=== PATIENT | female | born 1955 | race Caucasian/White ===

== ENCOUNTER 2024-10-20 15:09 | Outpatient (AMB) | payer MEDICARE, SELFPAY ==
--- NOTE | 2024-10-20 15:09 | A.OFFPC_ITS ---
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 Internal Required: No Is last menstrual period known: No Post menopausal: No Patient : No Allergies latex Allergy (Intermediate, Verified 10/20/24 15:31) rash Penicillins Allergy (Mild, Verified 10/20/24 15:31) Unknown codeine Adverse Reaction (Severe, Verified 10/20/24 15:31) Fainting Medication List - Last Reconciled 10/20/24 by Barbara Dailey CNP blood sugar diagnostic ([employer] Ultra Test strips) As directed blood-glucose meter ([employer] Ultra2 Meter) As directed cholecalciferol (vitamin D3) 50 mcg PO DAILY ezetimibe 10 mg PO DAILY lancets ([employer] Delica Plus Lancet) As directed lisinopril 20 mg PO DAILY magnesium 250 mg PO DAILY metformin 1,000 mg PO BID pioglitazone 30 mg PO DAILY sitagliptin phosphate (Januvia) 100 mg PO DAILY tiotropium bromide 1 cap inhalation QAM Tobacco use date assessed: 10/20/24 Fall risk assessment: No Falls in past year Last assessed Fall Risk: 10/20/24 Dental Screening Dental Screen Date: 10/20/24 Did you have a dental visit in the last 12 months?: No Did you have a dental problem in the last 6 months where you did not have access to dental care?: No Was dental information given to patient?: Yes HPI HPI Comments History of Present Illness Details 69-year-old female presents to establish care. Prior PCP? - [facility] Last office visit - 05/07/2024 Last /CPE/labs - Over a year Acute issue(s) - Reports persistent pressure bilatera l knee pain since 2000. Walking causes significant pain in her knees, therefore, she has mostly uses her power wheelchair to move around. She has been taking/applying OTC remedies with short- term relief. - In May 2024, she was hospitalized for several days at [facility] for elevated blood glucose. Last A1c was 14% in 05/2024 at [facility]. Past Medical History - Type 2 diabetes, hypertension, hyperli pidemia, COPD, obesity, kidney disease, IBS, osteoporosis, arthritis of both knees and feet, DJD of L4, myopia Surgical History - Cholecystectomy Family History - Mom: Alcohol abuse - MGF: Alcohol abuse Social History - Former smoker, smoked between 11-24 ye ars of age. Does not vape. Drinks 2 beers occasionally/holidays. Denies recreational drug use - Has been making healthy dietary choice s. She does not exercise and walking causes significant pain in her knees. Generally sleep well Health maintenance - Last eye exam was in 02/2024 with [facility]. She has an eye exam scheduled in 03/2025 - Last dental visit was over 5 years ago ; encouraged to schedule an appointment with his dentist for routine dental care - Last tetanus vaccine unknown but withi n 10 years - She states that she is up-to-date on t he flu vaccine - She notes notes that she is vaccinated for shingles and pneumonia - Last pap smear test unknown. She is wi lling to be referred for a pap smear test - Last mammogram was in 2003: normal. Sh e does not perform mammogram anymore and declines an order. She denies family history of breast cancer - Last colonoscopy was in 1993: normal. She does not perform colonoscopy anymore and declines referral. She denies family history of colon cancer - Last dexa scan was in 2004: osteoporos is. She is willing to have a dexa scan Specialists - Was followed by nephrology, endocrinol ogy, and vascular surgery [facility] Medical History (Updated 10/20/24 @ 16:08 by Barbara Dailey CNP) Kidney disease FH: cholecystectomy IBS (irritable bowel syndrome) Back disorder Swelling Osteoporosis Arthritis Diabetes High cholesterol High blood pressure COPD (chronic obstructive pulmonary disease) Family History (Updated 10/20/24 @ 15:39 by Chelsie Hamilton MA) Mother Alcohol abuse Thyroid disorder Maternal Aunt Alcohol abuse Maternal Grandfather Alcohol abuse Father Diabetes Maternal Grandmother Diabetes Brother Diabetes Sister Thyroid disorder Social History Housing: Apartment Patient Tobacco Use Status: Former Tobacco user e-Cigarette/Vaping Use: Never Used Second Hand Smoke Exposure: No service: No Current occupational status: disabled Current occupational exposures/hazards: No Cognitive needs: Yes (wheel chair) Hearing needs: No Vision needs: Yes Questionnaire PHQ-9 Over the last 2 weeks, how often have you been bothered by any of the following problems? 1. Little interest or pleasure in doing things: several days 2. Feeling down, depressed, or hopeless: not at all 3. Trouble falling or staying asleep, or sleeping too much: several days 4. Feeling tired or having little energy: nearly every day 5. Poor appetite or overeating: nearly every day 6. Feeling bad about yourself - or that you are a failure or have let yourself or your family down: not at all 7. Trouble concentrating on things, such as reading the newspaper or watching television: not at all 8. Moving or speaking so slowly that other people could have noticed. Or the opposite - being so fidgety or restless that you have been moving around a lot more than usual: not at all 9. Thoughts that you would be better off or of hurting yourself in some way: not at all Total score: 8 Depression Screening Interpretation: Positive Depression Screening Done: Yes 38541 - PHQ-9 Billing: Yes Source: Developed by Drs. Nacriso Araiza, Louann Cade, Familia Ashby and colleagues, with an educational basim from [employer]. Thrive Questionnaire Date Thrive assessed: 10/20/24 I am a: Patient What is your living situation today?: I have a steady place to live Within the past 12 months, did the food you bought not last and you didn't have the money to get more?: Sometimes True Within the past 12 months, did you worry whether your food would run out before you got money to buy more?: Never true Do you have trouble paying for medicines?: No Do you have trouble getting transportation to medical appointments?: No Do you have trouble paying your heating and electricity bill?: No Do you have trouble taking care of your child, family member or friend?: Yes Do you have trouble with day-to-day activities such as bathing, preparing meals, shopping, managing finances, etc.?: No Are you currently unemployed and looking for a job?: No Are you interested in more education?: No Please select the resources that you would like help with: Food and None Currently or been in a relationship where the following occur: No concerns reported THRIVE Score: 1 AUDIT C Alcohol Use Questionnaire (AUDIT-C) 1. How often do you have a drink containing alcohol?: Monthly or less 2. How many drinks containing alcohol do you have on a typical day when you are drinking?: 1 or 2 3. How often do you have six or more drinks on one occasion?: Never Total Score: 1 Score Reviewed/Action Taken: Yes SILVESTRE-7 AMB Questionnaire SILVESTRE-7 Date SILVESTRE - 7 assessed: 10/20/24 Feeling nervous, anxious, or on edge: 0 = Not at all Not being able to stop or control worryin = Not at all Worrying too much about different things: 0 = Not at all Trouble relaxin = Not at all Being so restless that it is hard to sit still: 0 = Not at all Becoming easily annoyed or irritable: 1 = Several days Feeling afraid as if something awful might happen: 0 = Not at all Total SILVESTRE-7 score (0-4 normal; 5-9 mild; 10-14 moderate; 15-21 severe): 1 Source: Developed by Drs. Narciso Araiza, Louann Cade, Familia Ashby and colleagues, with an educational basim from [employer]. SILVESTRE-7 Assessment Billing SILVESTRE-7 Assessment Tool: SILVESTRE-7 Assessment 64721 Review of Systems Const Details: Const Denies chills, Denies fatigue, Denies fever(s), Denies headache(s) and Denies weakness ENT Denies dizziness and Denies headache(s) Card Denies chest pain, Denies lightheadedness, Denies dyspnea and Denies other (Palpitations) Resp Denies cough, Denies dyspnea, Denies wheezing and Denies other ( shortness of breath) GI Denies abdominal pain, Denies melena, Denies hematochezia, Denies change in bowel habits, Denies dyspepsia and Denies nausea Denies hematuria and Denies dysuria Musc Reports as per HPI Skin/Breast Denies rash, Denies unusual bruising and Denies wounds Neuro Reports abnormal gait, Denies dizziness, Denies headache(s), Denies memory loss, Denies numbness, Denies Sensory deficit (Neuro), Denies tingling and Denies weakness Psych Denies anxiety, Denies depression, Denies memory loss Endo Denies cold intolerance, Denies fatigue, Denies heat intolerance, Denies polydipsia and Denies polyuria Aller/Immun Denies wheezing Physical exam (Primary Care) Vital Signs: Last Vital Signs Temp 97.7 F 10/20/24 15:27 Pulse 105 H 10/20/24 15:27 Resp 16 10/20/24 15:27 BP 115/63 10/20/24 15:27 Pulse Ox 95 10/20/24 15:27 Oxygen Delivery Method Room Air 10/20/24 15:27 BMI result Body Mass Index 44.9 Tobacco/Smoking Status: Tobacco use Status Tobacco use date assessed 10/20/24 10/20/24 15:25 Patient Tobacco Use Status Former Tobacco user 10/20/24 15:25 e-Cigarette/Vaping Use Never Used 10/20/24 15:25 PHQ-9: PHQ-9 Score PHQ-9: Total score 8 10/21/24 06:34 Depression Screening Interpretation: Positive Thrive Assessment: Date of Thrive Assessment Date Thrive assessed 10/20/24 10/20/24 15:45 Currently or been in a relationship where the following occur: No concerns reported Const Other: General: no acute distress and well developed Nutritional Appearance: well nourished Orientation/consciousness: patient oriented x3 HENMT Head: Yes normocephalic and Yes atraumatic Eyes General: appearance normal, both eyes and all related structures Pupils: Equal, round and reactive pupils present EOM: EOMs intact bilaterally Resp Effort & Inspection: normal respiratory effort Auscultation: clear to auscultation bilaterally Cardio Rate: regular rate Rhythm: regular rhythm Heart sounds: S1 normal heart sound present, S2 normal heart sound present, no gallops, no murmurs and no rubs GI Palpation (GI): No Abdominal aortic bruit present, Soft to palpation, nontender, No hepatosplenomegaly present and No Rebound tenderness present Auscultation: normal bowel sounds General: Yes no CVA tenderness Back/Spine/Pelvis Back: no CVA tenderness Cervical Spine: cervical ROM normal and No Cervical spine tenderness Thoracic/Lumbar Spine: thoraco-lumbar ROM normal, No pain with thoraco-lumbar ROM, No thoracic spinal tenderness and No lumbar spinal tenderness Extrem General: Yes normal to inspection, No edema and No calf tenderness Skin General: warm and dry. Normal skin color. Normal skin turgor Lesions: no lesions Rashes: no rashes Trauma: no lacerations or abrasions Wounds: no wounds Nails: normal Neuro General: patient oriented x3, wheelchair-bound and no focal neuro deficit Cranial nerves: Yes Equal, round and reactive pupils present Cognition (Neuro): normal cognition Gait exam (Neuro): Not assessed Sensory Exam: No Sensory deficit (Neuro) Psych Appearance: grossly normal Affect: normal affect Attitude: cooperative Thought process: Normal thought process present Results AMB Hemoglobin A1c AMB Hemoglobin A1c 6.8 % Last Edit by Helena Roa MA on 10/20/24 16:22 Results Reviewed Results Reviewed: Laboratory Last Values Hgb A1c (Clinic) 6.8 % (4.0-6.0) H 10/20/24 16:22 Coding Level of Care Code New Pt Level 4 (91341) Diagnoses Type 2 diabetes mellitus E11.9 High blood pressure I10 Arthritis of both knees M17.0 Laboratory tests ordered as part of a complete physical exam (CPE) Z00.00 Additional Codes SILVESTRE-7 Assessment Billing - SILVESTRE-7 Assessment Tool: SILVESTRE-7 Assessment 73254 ([id number]) PHQ-9 - 26549 - PHQ-9 Billing: Yes ([id number]) Assessment & Plan Assessment & Plan (1) Type 2 diabetes mellitus: Code(s): E11.9 - Type 2 diabetes mellitus without complications Category: Medical Plan: A1c today is 6.8%, within goal of less than 7.0%. Continue current treatment regimen. ADA diet and routine exercise encouraged. Advised to perform lab work before next visit. Follow-up in a month for an extended physical exam and labs review. Return sooner with symptoms or concerns. Verbalized understanding and agreed with the plan. (2) High blood pressure: Code(s): I10 - Essential (primary) hypertension Category: Medical Plan: Blood pressure is 115/63, within goal of less than 130/80. Continue current treatment regimen. Will continue to monitor. Verbalized understanding and agreed with the plan. (3) Arthritis of both knees: Code(s): M17.0 - Bilateral primary osteoarthritis of knee Category: Medical Plan: Reports persistent pressure bilateral knee pain since 2000. Walking causes significant pain in her knees, therefore, she has mostly uses her power wheelchair to move around. She has been applying OTC remedies with short-term relief. Tylenol ordered; advised to take as prescribed. Follow-up with worsening or new symptoms or concerns. Verbalized understanding and agreed with the plan. (4) Laboratory tests ordered as part of a complete physical exam (CPE): Code(s): . - Encounter for general adult medical examination without abnormal findings Category: Medical Plan: Fasting labs ordered as part of a complete physical exam. Advised to fast for at least 10 hours before getting labs drawn. May drink water Verbalized understanding and agreed with treatment plan. Orders: Orders Comprehensive Perry. Panel Fast 10/20/24. - Encounter for general adult medical examination without abnormal findings Lipid Panel 10/20/24. - Encounter for general adult medical examination without abnormal findings Complete Blood Count Auto Diff 10/20/24. - Encounter for general adult medical examination without abnormal findings Microalbumin, Random (w Creat) 10/20/24 Z. - Encounter for general adult medical examination without abnormal findings TSH reflex Free T4 10/20/24. - Encounter for general adult medical examination without abnormal findings UA CC w/rflx Micro + Cult 10/20/24 Z. - Encounter for general adult medical examination without abnormal findings Vitamin D 25-OH Total 10/20/24. - Encounter for general adult medical examination without abnormal findings AMB Hemoglobin A1c 10/20/24 E11.9 - Type 2 diabetes mellitus without complications Medications: New sitagliptin phosphate (Januvia) 100 mg PO DAILY 90 days 90 tabs 1RF acetaminophen ER (Tylenol 8 Hour) 650 mg PO Q8H PRN 90 tabs 3RF pain
[2024-10-20 15:27] VITALS: BP 115/63; PULSE 105; RESP 16; TEMP 36.5; O2SAT 95; BMI 44.9
--- OUTSIDE RECORDS SUMMARY | 2024-10-20 16:14 | XMS_ITS | Clinical Summary ---
Author Organization [address] [place] [address] Address [address] [place] [address] Phone Care Team Providers Care Claims Coordinator Name Role Phone Barbara Dailey TIARRA Primary Care Provider [phone] Allergies Active Allergy Reactions Criticality Noted Date Comments Codeine 05/31/2022 Passed out Other 09/30/2017 Powder gloves Penicillins 09/30/2017 Medications blood-glucose meter kit Check sugars upto 2 times a day 4 Active glucose blood test strip Check sugars upto 2 times a day 4 Active LACTOBACILLUS ACIDOPHILUS ORAL Take by mouth. Active potassium &magnesium aspartate (MAGNESIUM, POTASSIUM ASPARTATE ORAL) Take by mouth 1 (one) time each day. Active lancets lancets Check sugars upto 2 times a day 4 Active pyridoxine HCl, vitamin B6, (PYRIDOXINE, VITAMIN B6, ORAL) Take by mouth 1 (one) time each day. Active TURMERIC ORAL Take by mouth 1 (one) time each day. Active ZINC ORAL Take by mouth 1 (one) time each day. Active cholecalciferol (VITAMIN D-3) 25 mcg (1,000 unit) tablet Take 2 tablets (2,000 Units total) by mouth 1 (one) time each day. 4 Active SITagliptin phosphate (Januvia) 100 mg tablet Take 1 tablet (100 mg total) by mouth 1 (one) time each day. 4 Active lisinopriL (PRINIVIL,ZESTRIL) 20 mg tabletIndications:P rimary hypertension Take 1 tablet (20 mg total) by mouth 1 (one) time each day. 90 tablet 2 4 Active ezetimibe (ZETIA) 10 mg tabletIndications:M ixed hyperlipidemia Take 1 tablet (10 mg total) by mouth 1 (one) time each day. 90 tablet 2 4 Active tiotropium (SPIRIVA) 18 mcg per inhalation capsuleIndications: Chronic obstructive pulmonary disease, unspecified COPD type ([facility] V24, [facility] V28) Place 1 capsule (18 mcg total) into inhaler and inhale 1 (one) time each day in the morning. Inhale the contents of one capsule through the Spiriva device every AM 1 each 3 4 Active metFORMIN (GLUCOPHAGE) 1,000 mg tablet Take 1 tablet (1,000 mg total) by mouth 2 (two) times a day with meals. 60 each 2 4 Active insulin glargine (LANTUS SoloStar) 100 unit/mL (3 mL) injection pen Inject 25 Units under the skin at bedtime. 5 Pen 4 Active pioglitazone (ACTOS) 30 mg tablet Take 1 tablet (30 mg total) by mouth 1 (one) time each day. Active SITagliptin phosphate (JANUVIA) 100 mg tablet Take 1 tablet (100 mg total) by mouth 1 (one) time each day. Active pen needle, diabetic (BD Ultra-Fine Short Pen Needle) 31 gauge x 5/16 needleIndications:T ype 2 diabetes mellitus with diabetic neuropathy, without long-term current use of insulin ([facility] V24, [facility] V28) Use to inject 1-4 times daily as directed 100 each 11 5 Active Active Problems Problem Noted Date Diagnosed Date Hyperglycemia due to diabete s mellitus ([facility] V24, [facility] V28) 05/08/2024 Type 2 diabetes mellitus wit h hyperglycemia ([facility] V24, [facility] V28) 05/07/2024 Leg swelling 08/28/2023 Chronic low back pain with bilateral sciatica Primary osteoarthritis of both knees 03/29/2023 Arthritis 10/17/2022 Primary hypertension 10/17/2022 Irritable bowel syndrome 01/21/2020 Type 2 diabetes mellitus wit h obesity ([facility] [place], [facility] V28) 06/26/2019 Morbid obesity ([facility] V24, [facility] V28) 2018 Chronic back pain 09/30/2017 Chronic obstructive pulmonar y disease ([facility] [place]24, [facility] V28) 09/30/2017 Chronic pain of both knees 09/30/2017 Hyperlipidemia 09/30/2017 Low vitamin D level 09/30/2017 Type 2 diabetes mellitus wit h diabetic neuropathy, without long-term current use of insulin ([facility] [place], [facility] V28) 09/30/2017 Immunizations Name Administration Dates Next Due Influenza Quadravalent, 0.5m l (Fluad) 65yo and older 02/22/2024 Influenza Quadravalent, MDCK , 0.5ml, preservative free (Flucelvax) 6mo and older 02/24/2018 Influenza trivalent, 0.5mL ( Fluad) 65yo and older 03/07/2021,02/09/2020,02/16/2019,02/11,03/12/2014,03/06/2013,03/06/2012 ,03/13/2011,03/11/2010 Influenza trivalent, 0.5mL, preservative free (Fluarix; FluLaval; Fluzone) ages 6mo and older (Afluria) 3 years and older 02/13/2016,03/24/2015 [employer] SARS-CoV-2 COVID-19, mRNA, LNP-S, preservative free 02/21/2022,04/24/2021,10/10/2020 Pneumococcal conjugate 13 va lent (Prevnar 13, PCV13) 2mo and older 02/16/2019 Pneumococcal conjugate 20 va lent (Prevnar 20, PCV 20) 2mo and older 03/29/2023 Pneumococcal polysaccharide 23 valent (Pneumovax 23) 2yo and older 03/07/2021 RSV, bivalent, protein subun it RSVpreF, 0.5mL, Preservative Free (ABRYSVO) 60yo and older or 32 through 36 wks of 03/25/2024 Tdap Tetanus diptheria acell ular pertussis (Boostrix; Adacel) 7yo and older 08/02/2021 Zoster recombinant (Shingrix ) 19yo and older 02/24/2018,09/13/2017 Surgical History Surgery Date Site/Laterality Comments COLONOSCOPY PROCEDURE: HISTORICAL COLONOSCOPY HYSTERECTOMY PROCEDURE: HISTORICAL HYSTERECTOMY CHOLECYSTECTOMY PROCEDURE: [place] LAPAROSCOPY SURG CHOLECYSTECTOMY Medical History Medical History Date Comments L4 vertebral fracture (CMS/H CC V24, [facility] V28) DX:L4 vertebral fracture (HC C) Bronchitis DX:Bronchitis Diabetes mellitus type 2, co ntrolled, with complications (CMS/HCC V24, [facility] V28) DX:Diabetes mellitus type 2, controlled, with complications ([facility]) Irritable bowel syndrome DX:Irri table bowel syndrome Hyperlipidemia DX:Hyperlipidemi a Essential hypertension DX:Essent ial hypertension Primary osteoarthritis of both knees 03/29/2023 DX:Primary osteoarthritis of both knees COPD (chronic obstructive pu lmonary disease) (CMS/HCC V24, CMS/[facility] V28) Chronic back pain Obesity (BMI 30-39.9) Family History Medical History Relation Name Comments Diabetes Brother 1 COPD Brother 2 No Known Problems Brother 3 Diabetes Father Arthritis Mother Other cancer Mother brain Stroke Mother Hypertension Sister 1 No Known Problems Sister 2 No Known Problems Sister 3 No Known Problems Sister 4 No Known Problems Sister 5 Other cancer Sister 6 52 yo Asthma Son Relation Name Status Comments Brother 1 Alive Brother 2 Alive Brother 3 Alive Father Mother Sister 1 Alive Sister 2 Alive Sister 3 Alive Sister 4 Alive Sister 5 Alive Sister 6 52 yo Son Alive Social History Tobacco Use Types Packs/Day Years Used Date Smoking Tobacco: Former Cigarettes Q uit: 06/03/1969 Smokeless Tobacco: Never Tobacco Cessation:Counseling Given: Not Answered Alcohol Use Standard Drinks/Week Comments Yes 0 (1 standard drink = 0.6 oz pur e alcohol) Interpersonal Safety Answer Date Record ed Physical Abuse 05/08/2024 Verbal Abuse 05/08/2024 Comments Unknown Sex and Gender Information Value Date Recorded Sex Assigned at Female 05/07/2024 8:03 PM EST Legal Sex Female 2:02 PM EST Gender Identity Female 05/07/2024 8:03 PM EST Sexual Orientation Straight 05/07/2024 8: 03 PM EST Obstetrics History Last Filed Vital Signs Vital Sign Reading Time Taken Comments Blood Pressure 136/67 05/11/2024 8:35 AM EST Pulse 72 05/11/2024 3:20 AM EST Temperature 36.6 ??C (97.9 ??F) 05/11/2024 3:20 AM ES T Respiratory Rate 16 05/10/2024 7:26 PM EST Oxygen Saturation 98% 05/11/2024 3:20 AM EST Inhaled Oxygen Concentration - - Weight 107 kg (235 lb) 05/10/2024 3:01 PM EST Height 165.1 cm (5' 5 ) 05/07/2024 5:03 PM EST Body Mass Index 39.11 05/07/2024 5:03 PM EST Plan of Treatment Health Maintenance Due Date Last Done Comments Breast Cancer Screening 1955 Diabetes: Annual Foot Exam 1963 Colorectal Cancer Screening: Stool Based Tests (FOBT/FIT) 05/11/2022 Depression Screening 05/11/2022 Medicare Annual Wellness Visit 05/11/2022 Osteoporosis Screening (Bone Density Screening) 05/11/2022 Social Influencers of Health Screening 05/11/2022 COVID-19 Vaccine (10 - Pfizer risk 2023- season) 2024 02/17/2024, 02/12/2024, 10/10/2023, Additional history exists Diabetes: Blood Sugar Control Test (HGBA1C) 11/05/2024 05/07/2024, 07/22/2023 Diabetes: Annual Urine Albumin-Creatinine Ratio (uACR) 12/31/2024 01/01/2024 Diabetes: Annual Retina Eye Exam 03/02/2025 03/02/2024 Diabetes: Annual GFR (Glomerular Filtration Rate) 05/09/2025 05/09/2024, 05/08/2024, 05/08/2024, Additional history exists Hypertension/CHF/CAD Annual BMP Blood Test 05/09/2025 05/09/2024, 05/08/2024, 05/08/2024, Additional history exists Falls Risk Assessment 05/11/2025 05/11/2024 Cholesterol Screening (Lipid Panel) 03/20/2028 03/20/2023 DTaP,Tdap,and Td Vaccines (2 - Td or Tdap) 08/03/2031 08/02/2021 Zoster Vaccines Completed 02/24/2018, 09/13/2017 Hepatitis C Screening Completed 08/02/2021 Pneumococcal Vaccine: 50+ Years Completed 03/29/2023, 03/07/2021, 02/16/2019 Influenza Vaccine Completed 02/22/2024, , 02/28/2023, Additional history exists RSV Immunization Adult Patients Completed 03/25/2024, 03/20/2023 HIB Vaccines Aged Out No longer eligi ble based on patient's age to complete this topic HPV Vaccines Aged Out No longer eligi ble based on patient's age to complete this topic Hepatitis A Vaccines Aged Out No long er eligible based on patient's age to complete this topic Hepatitis B Vaccines Aged Out No long er eligible based on patient's age to complete this topic IPV Vaccines Aged Out No longer eligi ble based on patient's age to complete this topic MMR Vaccines Aged Out No longer eligi ble based on patient's age to complete this topic Meningococcal ACWY Vaccine Aged Out N o longer eligible based on patient's age to complete this topic Meningococcal B Vaccine Aged Out No l onger eligible based on patient's age to complete this topic RSV Immunization Patients Under 20 months Aged Out No longer eligible based on patient's age to complete this topic Varicella Vaccines Aged Out No longer eligible based on patient's age to complete this topic Procedures Procedure Name Priority Date/Time Associated Diagnosis Comments BASIC METABOLIC PANEL Routine 05/09/2024 7:08 AM EST HEMOGLOBIN A1C Add-On 05/07/2024 5:07 PM EST EXTERNAL DIABETIC RETINA EYE EXAM Routine 03/02/2024 9:49 AM EDT URINE ALBUMIN CREATININE RATIO Routine 01/01/2024 LIPID PANEL Routine 03/20/2023 HEPATITIS C SCREENING Routine 08/02/2021 from Last 3 Months or Most Recently Relevant to Health Maintenance Results * (ABNORMAL) Basic metabolic panel (05/09/2024 7:08 AM EST) [facility] Sodium 137 133 - 145 mmol/L LAB CHEMISTRY METHOD 05/09/2024 7:52 AM [facility] Potassium 4.5 3.5 - 5.5 mmol/L LAB CHEMISTRY METHOD 05/09/2024 7:52 AM [facility] Chloride 108 96 - 110 mmol/L LAB CHEMISTRY METHOD 05/09/2024 7:52 AM [facility] CO2 22 21 - 32 mmol/L LAB CHEMISTRY METHOD 05/09/2024 7:52 AM [facility] Anion Gap 7 3 - 11 LAB CHEMISTRY METHOD 05/09/2024 7:52 AM [facility] Glucose 289(H) 70 - 100 mg/dL LAB CHEMISTRY METHOD 05/09/2024 7:52 AM [facility] BUN 18 5 - 25 mg/dL LAB CHEMISTRY METHOD 05/09/2024 7:52 AM [facility] Creatinine 1.09 0.50 - 1.10 mg/dL LAB CHEMISTRY METHOD 05/09/2024 7:52 AM [facility] eGFR 54(L) >=60 mL/min/1. 73m2 LAB CHEMISTRY METHOD 05/09/2024 7:52 AM [facility] Comment:Calculation based on the??Chronic Kidney Disease Epidemiology Collaboration (CKD-EPI) equation refit??without adjustment for race. BUN/Creatinine Ratio 16.5 LAB CHEMISTRY METHOD 05/09/2024 7:52 AM [facility] Calcium 9.2 8.5 - 10.5 mg/dL LAB CHEMISTRY METHOD 05/09/2024 7:52 AM [facility] Blood Venous blood specimen / Unknown Venipuncture / Unknown 05/09/2024 7:08 AM EST 05/09/2024 7:23 AM EST us Ricardo Cosme MD LAB BLOOD ORDERABLES Final Re sult [facility] [address] [place] [address], [place] [phone] * (ABNORMAL) Hemoglobin A1c (05/07/2024 5:07 PM EST) [facility] Hemoglobin A1C 14.7(H) <6.5 % LAB CHEMISTRY METHOD 05/08/2024 2:[address] [facility] Mean Bld Glu Estim. 375 mg/dL LAB CHEMISTRY METHOD 05/08/2024 2:[address] [facility] Blood Venous blood specimen / Unknown Venipuncture / Unknown 05/07/2024 5:07 PM EST 05/07/2024 5:18 PM EST Result [facility] Alberto lAvarado MD LAB BLOOD ORDERABLES Final Result [facility] [address] [place] [address], * External Diabetic Retina Eye Exam Report (03/02/2024 9:49 AM EDT) Anatomical Region Laterality Modality Ultrasound Result [facility] Historical Provider IMG US PROCEDURES Final R esult * Urine Albumin Creatinine Ratio (01/01/2024) [facility] Urine Albumin Creatinine Ratio Abstracted Result [facility] MAINTENANCE Final Result * (ABNORMAL) Lipid panel (03/20/2023) [facility] LDL/HDL Ratio 5(A) 0 - 4 Triglycerides 235(A) 0 - 150 mg/dL Cholesterol 238(A) 0 - 200 mg/dL HDL 45 >=40 mg/dL LDL Cholesterol 146(A) 0 - 100 mg/dL Blood Venous blood specimen / Unknown Result [facility] Historical [place] [facility] LAB BLOOD ORDERABLES Maisha l Result * Hepatitis C Screening (08/02/2021) [facility] Hepatitis C Screening Abstracted Result [facility] Final Result from Last 3 Months or Most Recently Relevant to Health Maintenance Insurance [employer] Advance Directives Documents on File Type Date Recorded 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 Do not modify or discontinue any currently active code status orders. * Full Code - Default Date Activated Date Inactivated Comments 05/07/2024 8:16 PM 05/07/2024 9:37 PM This is orde r is used when code status has not been discussed with the patient, or code status is otherwise unknown/unconfirmed To update the patient's code status, place a code status order. Do not modify or discontinue any currently active code status orders. Care Teams Claims Coordinator Relationship Specialty Start Date End Date Barbara Dailey FNP [address] [place] [address] PCP - General Family Medicine 07/06/24
== END 2024-10-20 16:34 | disposition home or self-care (01) ==
LOC: HO.HMCFM 15:09
PROVIDERS: PCP Nurse Practitioner Family; Visit Provider Nurse Practitioner Family
DX: E11.9 Type 2 diabetes mellitus without complications (principal)

== ENCOUNTER → 2024-10-20 15:09 | Outpatient (BNVA) | payer MEDICARE, SELFPAY | PROVIDERS: PCP Nurse Practitioner Family; Visit Provider Nurse Practitioner Family | DX: Z00.00 Encounter for general adult medical examination without abnormal findings (principal); E11.9 Type 2 diabetes mellitus without complications; J44.9 Chronic obstructive pulmonary disease, unspecified; I10 Essential (primary) hypertension; M17.0 Bilateral primary osteoarthritis of knee | CPT/HCPCS: 83036; 96127; 99202 ==

== ENCOUNTER 2024-10-29 08:03 | Outpatient (REF) | payer MEDICARE, SELFPAY ==
--- OUTSIDE RECORDS SUMMARY | 2024-10-29 08:06 | XMS_ITS | Clinical Summary ---
Author Organization [address] [place] [address] Address [address] [place] [address] Phone Care Team Providers Care Groundwater Programs Director Name Role Phone Barbara Dailey TIARRA Primary Care Provider [phone] Allergies Active Allergy Reactions Criticality Noted Date [...] Chronic obstructive pulmonary disease, unspecified COPD type ([facility] V24, [facility] V28) Place 1 capsule (18 mcg total) [...] neuropathy, without long-term current use of insulin ([facility] V24, [facility] V28) Use to inject 1-4 times daily as directed 100 each 11 5 Active Active Problems Problem Noted Date Diagnosed Date Hyperglycemia due to diabete s mellitus ([facility] V24, [facility] V28) 05/08/2024 Type 2 diabetes mellitus wit h hyperglycemia ([facility] V24, [facility] V28) 05/07/2024 Leg swelling 08/28/2023 Chronic low back pain with bilateral sciatica Primary osteoarthritis of both knees 03/29/2023 Arthritis 10/17/2022 Primary hypertension 10/17/2022 Irritable bowel syndrome 01/21/2020 Type 2 diabetes mellitus wit h obesity ([facility] [place]24, [facility] V28) 06/26/2019 Morbid obesity ([facility] V24, [facility] V28) 2018 Chronic back pain 09/30/2017 Chronic obstructive pulmonar y disease ([facility] V24, [facility] V28) 09/30/2017 Chronic pain of both knees 09/30/2017 Hyperlipidemia 09/30/2017 Low vitamin D level 09/30/2017 Type 2 diabetes mellitus wit h diabetic neuropathy, without long-term current use of insulin ([facility] V24, [facility] V28) 09/30/2017 Immunizations Name Administration Dates Next Due Influenza Quadravalent, 0.5m l (Fluad) 65yo and older 02/22/2024 Influenza Quadravalent, MDCK , 0.5ml, preservative free (Flucelvax) 6mo and older 02/24/2018 Influenza trivalent, 0.5mL ( Fluad) 65yo and older 03/07/2021,02/09/2020,02/16/2019,02/11,03/12/2014,03/06/2013,03/06/2012 ,03/13/2011,03/11/2010 Influenza trivalent, 0.5mL, preservative free (Fluarix; FluLaval; Fluzone) ages 6mo and older (Afluria) 3 years and older 02/13/2016,03/24/2015 [employer] SARS-CoV-2 COVID-19, mRNA, LNP-S, preservative free 02/21/2022,04/24/2021,10/10/2020 [...] COLONOSCOPY HYSTERECTOMY PROCEDURE: HISTORICAL HYSTERECTOMY CHOLECYSTECTOMY PROCEDURE: [place] LAPAROSCOPY SURG CHOLECYSTECTOMY Medical History Medical History Date Comments L4 vertebral fracture (CMS/H CC V24, [facility] V28) DX:L4 vertebral fracture (HC C) Bronchitis DX:Bronchitis Diabetes mellitus type 2, co ntrolled, with complications (CMS/HCC V24, [facility] V28) DX:Diabetes mellitus type 2, controlled, with complications ([facility]) Irritable bowel syndrome DX:Irri table bowel syndrome Hyperlipidemia DX:Hyperlipidemi a Essential hypertension DX:Essent ial hypertension Primary osteoarthritis of both knees 03/29/2023 DX:Primary osteoarthritis of both knees COPD (chronic obstructive pu lmonary disease) (CMS/HCC V24, [facility] V28) Chronic back pain Obesity (BMI 30-39.9) [...] 05/07/2024 5:03 PM EST Plan of Treatment Upcoming Encounters Date Type Department Care Team (Late st Contact Info) Description 12/03/2024 1:15 PM EDT Office Visit Endocrinology [address] [phone] Maurice Santos MD [address] [place] [address] 01/14/2025 2:00 PM EDT Office Visit Vascular Surgery - [place] [address] [phone] Asha Drew MD [address] [place] [address] [place] [address] Health Maintenance Due Date Last Done Comments Breast Cancer Screening 1955 Diabetes: Annual Foot Exam 1963 Colorectal Cancer Screening: Stool Based Tests (FOBT/FIT) 05/11/2022 Depression Screening 05/11/2022 Medicare Annual Wellness Visit 05/11/2022 Osteoporosis Screening (Bone Density Screening) 05/11/2022 Social Influencers of Health Screening 05/11/2022 COVID-19 Vaccine (10 - Pfizer risk season) 2024 02/17/2024, 02/12/2024, 10/10/2023, Additional history [...] Basic metabolic panel (05/09/2024 7:08 AM EST) Sodium 137 133 - 145 mmol/L LAB CHEMISTRY METHOD 05/09/2024 7:52 AM [facility] Potassium 4.5 3.5 - 5.5 mmol/L LAB CHEMISTRY METHOD 05/09/2024 7:52 AM [facility] Chloride 108 96 - 110 mmol/L LAB CHEMISTRY METHOD 05/09/2024 7:52 AM [facility] CO2 22 21 - 32 mmol/L LAB CHEMISTRY METHOD 05/09/2024 7:52 AM [facility] Anion Gap 7 3 - 11 LAB CHEMISTRY METHOD 05/09/2024 7:52 AM [facility] Glucose 289(H) 70 - 100 mg/dL LAB CHEMISTRY METHOD 05/09/2024 7:52 AM [facility] BUN 18 5 - 25 mg/dL LAB CHEMISTRY METHOD 05/09/2024 7:52 AM [facility] Creatinine 1.09 0.50 - 1.10 mg/dL LAB CHEMISTRY METHOD 05/09/2024 7:52 AM [facility] eGFR 54(L) >=60 mL/min/1. 73m2 LAB CHEMISTRY METHOD 05/09/2024 7:52 AM [facility] Comment:Calculation based on the??Chronic Kidney Disease Epidemiology Collaboration (CKD-EPI) equation refit??without adjustment for race. BUN/Creatinine Ratio 16.5 LAB CHEMISTRY METHOD 05/09/2024 7:52 AM EST [facility] Calcium 9.2 8.5 - 10.5 mg/dL LAB CHEMISTRY METHOD 05/09/2024 7:52 AM EST [facility] Blood Venous blood specimen / Unknown Venipuncture / Unknown 05/09/2024 7:08 AM EST 05/09/2024 7:23 AM EST us Ricardo Cosme MD LAB BLOOD ORDERABLES Final Re sult Performing Organization Address City/[facility]/ZIP Co de Phone Number [facility] [address] [place] [address], [place] [phone] * (ABNORMAL) Hemoglobin A1c (05/07/2024 5:07 PM EST) Hemoglobin A1C 14.7(H) <6.5 % LAB CHEMISTRY METHOD 05/08/2024 2:15 PM EST [facility] Mean Bld Glu Estim. 375 mg/dL LAB CHEMISTRY METHOD 05/08/2024 2:15 PM EST [facility] Blood Venous blood specimen / Unknown Venipuncture / Unknown 05/07/2024 5:07 PM EST 05/07/2024 5:18 PM EST us Alberto Alvarado MD LAB BLOOD ORDERABLES Final Result [facility] [address] [place] [address], [place] [phone] * External Diabetic Retina Eye Exam Report (03/02/2024 9:49 AM EDT) Anatomical Region Laterality Modality Ultrasound us Historical Provider MD KIRK US PROCEDURES Final R esult * HM Urine Albumin Creatinine Ratio (01/01/2024) Urine Albumin Creatinine Ratio Abstracted Historical Provider HEALTH MAINTENANCE Final Result * (ABNORMAL) Lipid panel (03/20/2023) LDL/HDL Ratio 5(A) 0 - 4 Triglycerides 235(A) 0 - 150 mg/dL Cholesterol 238(A) 0 - 200 mg/dL HDL 45 >=40 mg/dL LDL Cholesterol 146(A) 0 - 100 mg/dL Blood Venous blood specimen / Unknown Result [facility] Provider LAB BLOOD ORDERABLES Maisha l Result * Hepatitis C Screening (08/02/2021) Hepatitis C Screening Abstracted [facility] Provider HEALTH MAINTENANCE Final Result from Last 3 Months or Most Recently Relevant to Health Maintenance Insurance [employer] Advance Directives Documents on File Type Date Recorded Patient 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 Care Teams Groundwater Programs Director Relationship Specialty Start Date End Date Barbara Dailey FNP [address] [place] [address] PCP - General Family Medicine 07/06/24
[2024-10-29 11:55] LABS: MANUAL DIFF FLAG NO
[2024-10-29 12:09] LABS: Basophils Absolute Auto 0.1 X10*3/uL (0.0-0.2); Eosinophils Absolute Auto 0.5 X10*3/uL (0.0-0.4); Eosinophils Percent Auto 5.4 % (0-4); Hematocrit 38.1 % (37.0-47.0); Hemoglobin 12.5 g/dl (12.0-16.0); Imm Gran Abs Auto 0.03 X10*3/uL (0.00-0.03); Imm Gran Pct Auto 0.3 % (0.0-0.4); Lymphocytes Absolute Auto 3.2 X10*3/uL (1.2-4.9); Lymphocytes Percent Auto 36.2 % (20-40); Mean Corpuscular HGB Conc 32.8 g/dl (31.0-35.0); Mean Corpuscular Hemoglobin 31.7 pg (27.0-33.0); Mean Corpuscular Volume 96.7 fL (80.0-98.0); Mean Platelet Volume 11.9 fL (9.4-12.3); Monocytes Absolute Auto 0.6 X10*3/uL (0.1-1.2); Monocytes Percent Auto 6.4 % (2-11); Neutrophils Absolute Auto 4.5 x10*3/uL (2.0-8.3); Neutrophils Percent Auto 50.7 % (45-73); Platelet Count 238 X10*3/uL (160-400); Red Blood Count 3.94 X10*6/uL (4.20-5.50); Red Cell Distribution Width 13.6 % (11.0-16.0); White Blood Count 8.9 X10*3/uL (4.8-10.8)
[2024-10-29 12:12] LABS: Appearance Urine Clear; Color Urine Yellow; Glucose Urine UA Negative (Negative); Leukocyte Esterase Urine Small (1+) (Negative); Nitrite Urine Negative (Negative); PH 5.5 (5.0-9.0); Specific Gravity - Urine 1.025 (1.005-1.025); UMIC TRIGGER UACC YES; Urine Blood Negative (Negative); Urine Ketones Trace mg/dL (Negative); Urine Protein Negative (Neg-Trace)
[2024-10-29 12:33] LABS: Bacteria Urine None Seen (None Seen); Hyaline Casts Urine 0-2 /LPF (0-2); RBC Urine 0-2 /HPF (0-2); UACC Culture Trigger YES
[2024-10-29 12:48] LABS: Alanine Aminotransferase 24 U/L (0-31); Albumin Level 3.9 g/dL (3.5-5.0); Alkaline Phosphatase 42 U/L (39-117); Anion Gap 14 (12-20); Aspartate Amino Transferase 28 U/L (5-31); Bilirubin Total 0.4 mg/dL (0.0-1.0); Blood Urea Nitrogen 27 mg/dL (9-16); Calcium 9.2 mg/dL (8.4-10.2); Carbon Dioxide 21 mmol/L (22-29); Chloride 110 mmol/L (96-108); Cholesterol 186 mg/dL (<200); Estimated Glomerular Filt Rate 48; Glucose Fasting 152 mg/dL (60-99); HDL Cholesterol 36 mg/dL (>40); LDL Cholesterol Calculated 92 mg/dL (<100); Potassium 4.5 mmol/L (3.3-5.1); Sodium 140 mmol/L (135-145); Total Protein 6.8 g/dL (6.5-8.0); Triglycerides 290 mg/dL (<150)
[2024-10-29 13:03] LABS: Microalbum/Creatinine Ratio Ur 5.7 ug/mg cr (<30)
[2024-10-29 13:06] LABS: TSH reflex Free T4 3.38 uIU/mL (0.32-4.0); Vitamin D 25-OH Total 80.4 ng/mL (>30)
== END 2024-10-29 08:04 | disposition home or self-care (01) ==
LOC: HO.WFDLDS 08:03
PROVIDERS: Visit Provider Nurse Practitioner Family
DX: Z00.00 Encounter for general adult medical examination without abnormal findings (principal); Z13.220 Encounter for screening for lipoid disorders; Z13.29 Encounter for screening for other suspected endocrine disorder; Z13.228 Encounter for screening for other metabolic disorders; Z13.0 Encounter for screening for diseases of the blood and blood-forming organs and certain disorders involving the immune mechanism
CPT/HCPCS: 36415; 80053; 80061; 81001; 82043; 82306; 82570; 84443; 85025; 87086

== ENCOUNTER 2024-12-08 13:22 | Outpatient (AMB) | payer MEDICARE, SELFPAY ==
--- NOTE | 2024-12-08 13:36 | A.OFFPC_ITS ---
Vital Signs 12/08/24 13:41 Height 5 ft 2 in Weight 249 lb 8 oz BMI 45.6 BP 112/68 Blood Pressure Location Rt brachial Position Sitting Respiration 16 Pulse 95 Pulse Source Pulse Oximeter Temp 98 F Temp Source Oral Pulse Oximetry (%) 96 Oxygen Delivery Method Room Air Intake Visit Reasons: 1 mos CPE, labs review Intake Note: patient here for CPE and lab results Business Support Professional Required: No Is last menstrual period known: No Post menopausal: No Patient : No Allergies latex Allergy (Intermediate, Verified 12/08/24 14:00) rash Penicillins Allergy (Mild, Verified 12/08/24 14:00) Unknown codeine Adverse Reaction (Severe, Verified 12/08/24 14:00) Fainting Medication List - Last Reconciled 12/08/24 by Barbara Dailey CNP acetaminophen ER (Tylenol 8 Hour) 650 mg PO Q8H PRN blood sugar diagnostic ([employer] Ultra Test strips) As directed blood-glucose meter ([employer]Touch Ultra2 Meter) As directed cholecalciferol (vitamin D3) 50 mcg (2 x 25 mcg (1,000 unit)) PO DAILY lancets ([employer]Touch Delica Plus Lancet) As directed lisinopril 20 mg PO DAILY magnesium 250 mg PO DAILY metformin 1,000 mg PO BID pioglitazone 30 mg PO DAILY sitagliptin phosphate (Januvia) 100 mg PO DAILY 90 days tiotropium bromide 1 cap inhalation QAM Tobacco use date assessed: 12/08/24 Fall risk assessment: No Falls in past year Last assessed Fall Risk: 12/08/24 Dental Screening Dental Screen Date: 12/08/24 Did you have a dental visit in the last 12 months?: No Did you have a dental problem in the last 6 months where you did not have access to dental care?: No Was dental information given to patient?: Patient declined HPI HPI Comments History of Present Illness Details 69-year-old female presents for an exten ded physical exam. She admits to taking her medications as prescribed without adverse reactions. She notes that she stopped taking statins and ezetimibe due to adverse reactions of muscle aches. She is willing to trial gemfibrozil for elevated triglycerides. Acute issue(s) - Reports chronic persistent pain to bot h knees. She describes the pain as stiffness, pressure, burning, cramping. She notes associated numbness to her toes. She is unable to fully bear weights on her legs. She uses her power wheelchair for ambulation. Physical therapy was ineffective. Gabapentin was also ineffective. She states that she declined knee replacement surgery because I am not a candidate due to obesity and diabetes. - Reports chronic intermittent low back pain due to DJD. Past Medical History - Type 2 diabetes, hypertension, hyperli pidemia, COPD, obesity, kidney disease, IBS, osteoporosis, arthritis of both knees and feet, DJD of L4, myopia, PVD Social History - Former smoker, smoked between 11-24 ye ars of age. Does not vape. Drinks 2 beers occasionally/holidays. Denies recreational drug use - Has been making healthy dietary choice s. She does not exercise and walking causes significant pain in her knees. Generally sleep well Health maintenance - Last eye exam was in 02/2024 with [facility]. She has an eye exam scheduled in 03/2025. Encouraged to sign a release for her PCP to obtain her ophthalmology record - Last dental visit was over 5 years ago ; encouraged to schedule an appointment with his dentist for routine dental care - Last tetanus vaccine unknown but withi n 10 years. She will obtain her vaccination record for review - She states that she is up-to-date on t he flu vaccine - She notes notes that she is vaccinated for shingles and pneumonia - Last pap smear test unknown. She is wi lling to be referred for a pap smear test - Last mammogram was in 2003: normal. Sh joycelyn does not perform mammogram anymore and declines an order. She denies family history of breast cancer - Last colonoscopy was in 1993: normal. She does not perform colonoscopy anymore and declines referral. She denies family history of colon cancer - Last dexa scan was in 2004: osteoporos is. She is willing to have a dexa scan Specialists Followed by endocrinology (has an appt. in 01/16/2025), and vascular surgery (has an appt. in 01/14/2025) at [facility] Medical History (Updated 12/08/24 @ 18:58 by Barbara Dailey CNP) Kidney disease IBS (irritable bowel syndrome) Back disorder Swelling Osteoporosis Arthritis Diabetes High cholesterol High blood pressure COPD (chronic obstructive pulmonary disease) Surgical History History of cholecystectomy Family History Mother Alcohol abuse Thyroid disorder Maternal Aunt Alcohol abuse Maternal Grandfather Alcohol abuse Father Diabetes Maternal Grandmother Diabetes Brother Diabetes Sister Thyroid disorder Social History Housing: Apartment Patient Tobacco Use Status: Former Tobacco user e-Cigarette/Vaping Use: Never Used Second Hand Smoke Exposure: No service: No Current occupational status: disabled Current occupational exposures/hazards: No Cognitive needs: Yes (wheel chair) Hearing needs: No Vision needs: Yes Questionnaire PHQ-9 Over the last 2 weeks, how often have you been bothered by any of the following problems? 1. Little interest or pleasure in doing things: not at all 2. Feeling down, depressed, or hopeless: not at all 3. Trouble falling or staying asleep, or sleeping too much: several days 4. Feeling tired or having little energy: several days 5. Poor appetite or overeating: not at all 6. Feeling bad about yourself - or that you are a failure or have let yourself or your family down: not at all 7. Trouble concentrating on things, such as reading the newspaper or watching t elevision: not at all 8. Moving or speaking so slowly that other people could have noticed. Or the opposite - being so fidgety or restless that you have been moving around a lot more than usual: not at all 9. Thoughts that you would be better off or of hurting yourself in some way: not at all Total score: 2 Depression Screening Interpretation: Negative Depression Screening Done: Yes 18637 - PHQ-9 Billing: Yes Source: Developed by Drs. Narciso Araiza, Louann Cade, Familia Ashby and colleagues, with an educational basim from [employer] Thrive Questionnaire Date Thrive assessed: 10/20/24 AUDIT C Alcohol Use Questionnaire (AUDIT-C) 1. How often do you have a drink containing alcohol?: Never 3. How often do you have six or more drinks on one occasion?: Never Total Score: 0 SILVESTRE-7 AMB Questionnaire SILVESTRE-7 Date SILVESTRE - 7 assessed: 12/08/24 Feeling nervous, anxious, or on edge: 3 = Nearly every day Not being able to stop or control worryin = Not at all Worrying too much about different things: 0 = Not at all Trouble relaxin = Nearly every day Being so restless that it is hard to sit still: 0 = Not at all Becoming easily annoyed or irritable: 1 = Several days Feeling afraid as if something awful might happen: 0 = Not at all Total SILVESTRE-7 score (0-4 normal; 5-9 mild; 10-14 moderate; 15-21 severe): 7 Source: Developed by Drs. Narciso Araiza, Louann Cade, Familia Ashby and colleagues, with an educational basim from [employer]. SILVESTRE-7 Assessment Billing SILVESTRE-7 Assessment Tool: SILVESTRE-7 Assessment 41561 Review of Systems Const Details: Denies chills, Denies fatigue, Denies fever(s), Denies headache(s) and Denies weakness HEENT Denies change in vision, Denies dizziness, Denies headache(s), Denies hearing loss, Denies nasal congestion, Denies sinus pain, Denies sinus pressure and Denies sore throat Card Denies chest pain, Denies lightheadedness, Denies dyspnea and Denies other (palpitations) Resp Denies cough, Denies dyspnea and Denies wheezing GI Denies abdominal pain, Denies melena, Denies hematochezia, Denies change in bowel habits, Denies dyspepsia and Denies nausea Denies hematuria and Denies dysuria Musc Reports as per HPI Skin/Breast Denies rash, Denies unusual bruising and Denies wounds Neuro Wheelchair bound, Denies dizziness, Denies headache(s), Denies memory loss, Denies numbness, Denies Sensory deficit (Neuro), Denies tingling and Denies weakness Psych Denies anxiety, Denies depression and Denies memory loss Endo Denies cold intolerance, Denies fatigue, Denies heat intolerance, Denies polydipsia and Denies polyuria Hector/Lymph Denies easy bleeding and Denies easy bruising Aller/Immun Denies wheezing Physical exam (Primary Care) Vital Signs: Last Vital Signs Temp 98 F 12/08/24 13:41 Pulse 95 12/08/24 13:41 Resp 16 12/08/24 13:41 BP 112/68 12/08/24 13:41 Pulse Ox 96 12/08/24 13:41 Oxygen Delivery Method Room Air 12/08/24 13:41 BMI result Body Mass Index 45.6 Tobacco/Smoking Status: Tobacco use Status Tobacco use date assessed 12/08/24 12/08/24 13:47 Patient Tobacco Use Status Former Tobacco user 12/08/24 13:36 e-Cigarette/Vaping Use Never Used 12/08/24 13:36 PHQ-9: PHQ-9 Score PHQ-9: Total score 2 12/08/24 16:26 Depression Screening Interpretation: Negative Thrive Assessment: Date of Thrive Assessment Date Thrive assessed 10/20/24 12/08/24 13:36 Const Other: General: no acute distress, well developed, alert and awake Nutritional Appearance: well nourished Orientation/consciousness: patient oriented x3 HENMT Head: Yes normocephalic and Yes atraumatic Ears: hearing grossly normal bilaterally and TM's normal bilaterally General nose exam: Normal external nose present and Normal nares present Mouth: Normal oral and palatal mucosa present and moist mucous membranes Teeth and gingiva: dentition normal Throat: Yes oropharynx normal Eyes Pupils: Equal, round and reactive pupils present and Pupil accommodation reflex normal EOM: EOMs intact bilaterally Neck Neck: Yes normal visual inspection, Yes no lymphadenopathy and Yes trachea midli ne Thyroid: Thyroid normal Carotids: no bruits Lymphatic: no lymphadenopathy noted Chest Chest palpation & inspection: normal inspection of the chest Resp Effort & Inspection: normal respiratory effort Auscultation: clear to auscultation bilaterally Cardio Rate: regular rate Rhythm: regular rhythm Heart sounds: S1 normal heart sound present, S2 normal heart sound present, no gallops, no murmurs and no rubs Bruits: no abdominal aortic bruits and no carotid bruits GI Palpation (GI): No Abdominal aortic bruit present, Soft to palpation, nontender, No hepatosplenomegaly present and No Rebound tenderness present Auscultation: normal bowel sounds General: Yes no CVA tenderness Back/Spine/Pelvis Back: no CVA tenderness Cervical Spine: cervical ROM normal and No Cervical spine tenderness Thoracic/Lumbar Spine: thoraco-lumbar ROM normal, No pain with thoraco-lumbar ROM, No thoracic spinal tenderness and lumbar spinal tenderness Skin General: warm and dry. Normal skin color. Normal skin turgor Lesions: no lesions Rashes: no rashes Trauma: no lacerations or abrasions Wounds: no wounds Nails: normal Neuro General: patient oriented x3, and CN's II-XI intact bilaterally Cranial nerves: Yes Equal, round and reactive pupils present Cognition (Neuro): normal cognition Gait exam (Neuro): Wheelchair bound d/t OA both knees Motor exam (neuro): 5/5 motor strength present throughout Sensory Exam: No Sensory deficit (Neuro) Deep tendon reflexes (DTR's): Unable to perform due to position in wheelchair Extrem General: Yes normal to inspection, No edema and No calf tenderness Psych Appearance: grossly normal Affect: normal affect Attitude: cooperative Thought process: Normal thought process present Coding Level of Care Code Est Pt Level 4 (88924) Est Pt Prev Care >65y(40277) Diagnoses Encounter for routine adult physical exam with abnormal findings Z00.01 High blood pressure I10 High cholesterol E78.00 Arthritis of both knees M17.0 Chronic low back pain M54.50; G89.29 Pap smear for cervical cancer screening Z12.4 Other osteoporosis without current pathological fracture M81.8 Colon cancer screening Z12.11 Additional Codes SILVESTRE-7 Assessment Billing - SILVESTRE-7 Assessment Tool: SILVESTRE-7 Assessment 05133 ([id number]) PHQ-9 - 35400 - PHQ-9 Billing: Yes ([id number]) Time Spent (min) 75 Assessment & Plan Assessment & Plan (1) Encounter for routine adult physical exam with abnormal findings: Code(s): Z00.01 - Encounter for general adult medical examination with abnormal findings Category: Medical Plan: Normal physical exam except for significant bilateral knee pain. Patient is wheelchair-bound. Continue current treatment regimen. Healthy diet and routine exercise encouraged. Follow-up in 6 weeks for hypertension, hyperlipidemia, and diabetes. Verbalized understanding and agreed with treatment plan. (2) High blood pressure: Code(s): I10 - Essential (primary) hypertension Category: Medical Plan: Blood pressure is 112/68, within goal of less than 130/80. Continue current treatment regimen. Low-sodium diet encouraged. Follow-up in 6 weeks. Verbalized understanding and agreed with the plan. (3) High cholesterol: Code(s): E78.00 - Pure hypercholesterolemia, unspecified Category: Medical Plan: Recent triglyceride level is elevated, 290, total cholesterol and LDL levels are normal, 186 and 92 respectively, HDL level is slightly low, 36. She notes that she stop taking statins and ezetimibe due to adverse reactions of muscle aches. She is willing to trial gemfibrozil for elevated triglycerides. Gemfibrozil 600 mg twice shlomo ordered; advised to take as prescribed. Instructed on the risks, benefits, and potential adverse reactions of the medication. Fast for 10-12 hours, may drink water and perform lipid panel blood work 2-3 days before next visit. Follow-up in 6 weeks. Verbalized understanding and agreed with the plan. (4) Arthritis of both knees: Code(s): M17.0 - Bilateral primary osteoarthritis of knee Category: Medical Plan: Reports chronic persistent pain to both knees. She describes the pain as stiffness, pressure, burning, cramping. She notes associated numbness to her toes. She is unable to fully bear weights on her legs. She uses her power wheelchair for ambulation. Physical therapy was ineffective. Gabapentin was also ineffective. She states that she declined knee replacement surgery because I am not a candidate due to obesity and diabetes. Declines ordered for gabapentin or tramadol. Encouraged to continue to take Tylenol as needed. Warm/cool compresses encouraged. Referred to pain management clinic. Follow-up with worsening or new symptoms. Verbalized understanding and agreed with the plan. (5) Chronic low back pain: Code(s): M54.50 - Low back pain, unspecified; G89.29 - Other chronic pain Category: Medical Plan: Reports chronic intermittent low back pain due to DJD. Lumbar spine tenderness to palpation. Plan as above. (6) Pap smear for cervical cancer screening: Code(s): Z12.4 - Encounter for screening for malignant neoplasm of cervix Category: Medical Plan: Last pap smear test unknown. 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 (7) Other osteoporosis without current pathological fracture: Code(s): M81.8 - Other osteoporosis without current pathological fracture Category: Medical Plan: Last dexa scan was in 2004: osteoporosis. DEXA scan ordered. (8) Colon cancer screening: Code(s): Z12.11 - Encounter for screening for malignant neoplasm of colon Category: Medical Plan: Last colonoscopy was in 1993: normal. She does not perform colonoscopy anymore and declines referral. She denies family history of colon cancer. Cologuard ordered. Plan Total time for this visit was 75 minutes. This include 55 minutes with patient, performing complete physical exam and chronic disease management/treatment, and 20 minutes reviewing, coordinating plan of care, and documenting. Orders: Orders XR DEXA axial skeleton Today M81.0 - Age-related osteoporosis without current pathological fracture Referrals Pain Management Referral G89.29 - Other chronic pain, M17.0 - Bilateral primary osteoarthritis of knee, M54.50 - Low back pain, unspecified POISING INSPECTOR Referral Z12.4 - Encounter for screening for malignant neoplasm of cervix Cologuard Test Z12.11 - Encounter for screening for malignant neoplasm of c olon Medications: New gemfibrozil 600 mg PO BID 60 tabs 3RF 30 days
[2024-12-08 13:41] VITALS: BP 112/68; PULSE 95; RESP 16; TEMP 36.6; O2SAT 96; BMI 45.6
--- OUTSIDE RECORDS SUMMARY | 2024-12-08 14:03 | XMS_ITS | Clinical Summary ---
Author Organization [address] [place] [address] Address [address] [place] [address] Phone Care Team Providers Care Hunter Name Role Phone Barbara Dailey TIARRA Primary Care Provider [phone] Allergies Active Allergy Reactions Criticality Noted Date [...] Chronic obstructive pulmonary disease, unspecified COPD type ([facility] V24, [facility] V28) Place 1 capsule (18 mcg total) [...] neuropathy, without long-term current use of insulin ([facility] V24, [facility] V28) Use to inject 1-4 times daily as directed 100 each 11 5 Active Active Problems Problem Noted Date Diagnosed Date Hyperglycemia due to diabete s mellitus ([facility] V24, [facility] V28) 05/08/2024 Type 2 diabetes mellitus wit h hyperglycemia ([facility] V24, [facility] V28) 05/07/2024 Leg swelling 08/28/2023 Chronic low back pain with bilateral sciatica Primary osteoarthritis of both knees 03/29/2023 Arthritis 10/17/2022 Primary hypertension 10/17/2022 Irritable bowel syndrome 01/21/2020 Type 2 diabetes mellitus wit h obesity ([facility] V24, [facility] V28) 06/26/2019 Morbid obesity ([facility] V24, [facility] V28) 2018 Chronic back pain 09/30/2017 Chronic obstructive pulmonar y disease ([facility] V24, [facility] V28) 09/30/2017 Chronic pain of both knees 09/30/2017 Hyperlipidemia 09/30/2017 Low vitamin D level 09/30/2017 Type 2 diabetes mellitus wit h diabetic neuropathy, without long-term current use of insulin ([facility] V24, [facility] V28) 09/30/2017 Immunizations Name Administration Dates Next Due Influenza Quadravalent, 0.5m l (Fluad) 65yo and older 02/22/2024 Influenza Quadravalent, MDCK , 0.5ml, preservative free (Flucelvax) 6mo and older 02/24/2018 Influenza trivalent, 0.5mL ( Fluad) 65yo and older 03/07/2021,02/09/2020,02/16/2019,02/11,03/12/2014,03/06/2013,03/06/2012 ,03/13/2011,03/11/2010 Influenza trivalent, 0.5mL, preservative free (Fluarix; FluLaval; Fluzone) ages 6mo and older (Afluria) 3 years and older 02/13/2016,03/24/2015 Simperium SARS-CoV-2 COVID-19, mRNA, LNP-S, preservative free 02/21/2022,04/24/2021,10/10/2020 [...] COLONOSCOPY HYSTERECTOMY PROCEDURE: HISTORICAL HYSTERECTOMY CHOLECYSTECTOMY PROCEDURE: ME LAPAROSCOPY SURG CHOLECYSTECTOMY Medical History Medical History Date Comments L4 vertebral fracture (CMS/H CC V24, [facility] V28) DX:L4 vertebral fracture (HC C) Bronchitis DX:Bronchitis Diabetes mellitus type 2, co ntrolled, with complications (CMS/HCC V24, [facility] V28) DX:Diabetes mellitus type 2, controlled, with complications ([facility]) Irritable bowel syndrome DX:Irri table bowel syndrome Hyperlipidemia DX:Hyperlipidemi a Essential hypertension DX:Essent ial hypertension Primary osteoarthritis of both knees 03/29/2023 DX:Primary osteoarthritis of both knees COPD (chronic obstructive pu lmonary disease) (CMS/HCC V24, [facility] V28) Chronic back pain Obesity (BMI 30-39.9) [...] 72 05/11/2024 3:20 AM EST Temperature 36.6 C (97.9 F) 05/11/2024 3:20 AM EST Respiratory Rate 16 05/10/2024 7:26 PM EST Oxygen Saturation 98% 05/11/2024 3:20 AM EST Inhaled Oxygen Concentration - - Weight 107 kg (235 lb) 05/10/2024 3:01 PM EST Height 165.1 cm (5' 5 ) 05/07/2024 5:03 PM EST Body Mass Index 39.11 05/07/2024 5:03 PM EST Plan of Treatment Upcoming Encounters Date Type Department Care Team (Late st Contact Info) Description 01/06/2025 11:30 AM EDT Office Visit Endocrinology [address] [address] Maurice Santos MD [address] [place] [address] 01/14/2025 2:00 PM EDT Office Visit Vascular Surgery - [place] [address] [address] Asha Drew MD [address] [place] [address] Health Maintenance Due Date Last Done Comments [...] Annual Urine Albumin-Creatinine Ratio (uACR) 12/31/2024 01/01/2024 Influenza Vaccine (#1) 2025 , 02/12/2024, 02/28/2023, Additional history exists Diabetes: Annual Retina Eye Exam 03/02/2025 03/02/2024 [...] Vaccine: 50+ Years Completed 03/29/2023, 03/07/2021, 02/16/2019 RSV Immunization Adult Patients Completed 03/25/2024, 03/20/2023 [...] mmol/L LAB CHEMISTRY METHOD 05/09/2024 7:52 AM [facility] Potassium 4.5 3.5 - 5.5 mmol/L LAB CHEMISTRY METHOD 05/09/2024 7:52 AM [facility] Chloride 108 96 - 110 mmol/L LAB CHEMISTRY METHOD 05/09/2024 7:52 AM [facility] CO2 22 21 - 32 mmol/L LAB CHEMISTRY METHOD 05/09/2024 7:52 AM [facility] Anion Gap 7 3 - 11 LAB CHEMISTRY METHOD 05/09/2024 7:52 AM [facility] Glucose 289(H) 70 - 100 mg/dL LAB CHEMISTRY METHOD 05/09/2024 7:52 AM [facility] BUN 18 5 - 25 mg/dL LAB CHEMISTRY METHOD 05/09/2024 7:52 AM [facility] Creatinine 1.09 0.50 - 1.10 mg/dL LAB CHEMISTRY METHOD 05/09/2024 7:52 AM [facility] eGFR 54(L) >=60 mL/min/1. 73m2 LAB CHEMISTRY METHOD 05/09/2024 7:52 AM [facility] Comment:Calculation based on the Chronic Kidney Disease Epidemiology Collaboration (CKD-EPI) equation refit without adjustment for race. BUN/Creatinine Ratio 16.5 LAB CHEMISTRY METHOD 05/09/2024 7:52 AM EST [facility] Calcium 9.2 8.5 - 10.5 mg/dL LAB CHEMISTRY METHOD 05/09/2024 7:52 AM EST [facility] Blood Venous blood specimen / Unknown Venipuncture / Unknown 05/09/2024 7:08 AM EST 05/09/2024 7:23 AM EST us Ricardo Cosme MD LAB BLOOD ORDERABLES Final Re sult Performing Organization Address City/[facility]/ZIP Co de Phone Number [facility] [address] [place] [address], [place] [phone] * (ABNORMAL) Hemoglobin A1c (05/07/2024 5:07 PM EST) Hemoglobin A1C 14.7(H) <6.5 % LAB CHEMISTRY METHOD 05/08/2024 2:15 PM EST [facility] Mean Bld Glu Estim. 375 mg/dL LAB CHEMISTRY METHOD 05/08/2024 2:15 PM EST [facility] Blood Venous blood specimen / Unknown Venipuncture / Unknown 05/07/2024 5:07 PM EST 05/07/2024 5:18 PM EST us Alberto Alvarado MD LAB BLOOD ORDERABLES Final Result [facility] [address] [place] [address], [place] [phone] * External Diabetic Retina Eye Exam Report [...] Blood Venous blood specimen / Unknown Result [facility] Provider LAB BLOOD ORDERABLES Maisha l Result * Hepatitis C Screening (08/02/2021) Hepatitis C Screening Abstracted [facility] Provider HEALTH MAINTENANCE Final Result from Last 3 Months or Most Recently Relevant to Health Maintenance Insurance [employer] Advance Directives Documents on File Type Date Recorded Patient Manager Msw Expl 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 Care Teams Hunter Relationship Specialty Start Date End Date Barbara Dailey FNP [address] [place] [address] PCP - General Family Medicine 07/06/24
== END 2024-12-08 14:29 | disposition home or self-care (01) ==
LOC: HO.HMCFM 13:23
PROVIDERS: PCP Nurse Practitioner Family; Visit Provider Nurse Practitioner Family
DX: Z00.01 Encounter for general adult medical examination with abnormal findings (principal); I10 Essential (primary) hypertension; E78.00 Pure hypercholesterolemia, unspecified; M17.0 Bilateral primary osteoarthritis of knee; M54.50 Low back pain, unspecified; G89.29 Other chronic pain; M81.8 Other osteoporosis without current pathological fracture; Z12.11 Encounter for screening for malignant neoplasm of colon

== ENCOUNTER → 2024-12-08 13:22 | Outpatient (BNVA) | payer MEDICARE, SELFPAY | PROVIDERS: PCP Nurse Practitioner Family; Visit Provider Nurse Practitioner Family | DX: Z00.01 Encounter for general adult medical examination with abnormal findings (principal); E11.9 Type 2 diabetes mellitus without complications; I10 Essential (primary) hypertension; E78.5 Hyperlipidemia, unspecified; J44.9 Chronic obstructive pulmonary disease, unspecified; M17.0 Bilateral primary osteoarthritis of knee; I73.9 Peripheral vascular disease, unspecified; E78.00 Pure hypercholesterolemia, unspecified; M54.50 Low back pain, unspecified; G89.29 Other chronic pain; M81.8 Other osteoporosis without current pathological fracture | CPT/HCPCS: 96127; 99212; 99397 ==

== ENCOUNTER 2025-01-25 15:04 | Outpatient (AMB) | payer MEDICARE, SELFPAY ==
--- NOTE | 2025-01-25 15:10 | A.OFFPC_ITS ---
Vital Signs 01/25/25 15:17 01/25/25 15:28 Height 5 ft 2 in Weight 257 lb 8 oz BMI 47.1 BP 155/70 H 128/70 Blood Pressure Location Rt brachial Lt brachial Position Sitting Sitting Respiration 16 Pulse 87 Pulse Source Pulse Oximeter Temp 97.8 F Temp Source Oral Pulse Oximetry (%) 98 Oxygen Delivery Method Room Air Intake Visit Reasons: 6 wks..after 01/20 HTN, DM, HLD Intake Note: patient here for 6 wks follow up for HTN, DM, and HLD Telehealth Coordinator Required: No Is last menstrual period known: No Post menopausal: No Patient : No Allergies latex Allergy (Intermediate, Verified 01/25/25 15:23) rash Penicillins Allergy (Mild, Verified 01/25/25 15:23) Unknown codeine Adverse Reaction (Severe, Verified 01/25/25 15:23) Fainting Medication List - Last Reconciled 01/25/25 by Barbara Dailey CNP acetaminophen ER (Tylenol 8 Hour) 650 mg PO Q8H PRN blood sugar diagnostic (Tallyfyuch Ultra Test strips) As directed blood-glucose meter (TantalineTouch Ultra2 Meter) As directed cholecalciferol (vitamin D3) 50 mcg (2 x 25 mcg (1,000 unit)) PO DAILY lancets (OneTouch Delica Plus Lancet) POC 3 times daily lisinopril 20 mg PO DAILY 90 days magnesium 250 mg PO DAILY 90 days metformin 1,000 mg PO BID 30 days pioglitazone 30 mg PO DAILY sitagliptin phosphate (Januvia) 100 mg PO DAILY 90 days tiotropium bromide 1 cap inhalation QAM Tobacco use date assessed: 01/25/25 Fall risk assessment: No Falls in past year Last assessed Fall Risk: 01/25/25 Dental Screening Dental Screen Date: 01/25/25 Did you have a dental visit in the last 12 months?: No Did you have a dental problem in the last 6 months where you did not have access to dental care?: No Was dental information given to patient?: No HPI HPI Comments History of Present Illness Details 69-year-old female presents for hyperten donya, diabetes, and hyperlipidemia follow-up. She admits to taking her medications as prescribed without adverse reactions. However, she has not taking gemfibrozil and does not plan to take it because she read it can cause rash and she already has a rash to her genital area. She notes history of bilateral lower extremity pain with statins and increased urination with ezetimibe. Reports persistent rash to her genital area for the past 1 year. The rash feels like a burning sensation which intensify with urination. Denies itching. She denies urinary symptoms. She has tried multiple regimen, including antifungal creams without relief. She brought a picture of the rash on her cell phone. No acute symptoms at this time. She will herself in her power wheelchair in and out of the office. [facility] Medical History (Updated 01/25/25 @ 15:47 by Barbara Dailey CNP) Kidney disease IBS (irritable bowel syndrome) Back disorder Swelling Osteoporosis Arthritis Diabetes High cholesterol High blood pressure COPD (chronic obstructive pulmonary disease) Surgical History History of cholecystectomy Family History Mother Alcohol abuse Thyroid disorder Maternal Aunt Alcohol abuse Maternal Grandfather Alcohol abuse Father Diabetes Maternal Grandmother Diabetes Brother Diabetes Sister Thyroid disorder Social History Housing: Apartment Patient Tobacco Use Status: Former Tobacco user e-Cigarette/Vaping Use: Never Used Second Hand Smoke Exposure: No service: No Current occupational status: disabled Current occupational exposures/hazards: No Cognitive needs: Yes (wheel chair) Hearing needs: No Vision needs: Yes Questionnaire Thrive Questionnaire Date Thrive assessed: 10/20/24 SILVESTRE-7 AMB Questionnaire SILVESTRE-7 Date SILVESTRE - 7 assessed: 12/08/24 Source: Developed by Drs. Narciso Araiza, Louann Cade, Familia Ashby and colleagues, with an educational basim from [employer]. Review of Systems Const Details: Const Denies chills, Denies fatigue, Denies fever(s), Denies headache(s) and Denies weakness ENT Denies dizziness and Denies headache(s) Card Denies chest pain, Denies lightheadedness, Denies dyspnea and Denies other (Palpitations) Resp Denies cough, Denies dyspnea, Denies wheezing and Denies other ( shortness of breath) GI Denies abdominal pain, Denies melena, Denies hematochezia, Denies change in bowel habits, Denies dyspepsia and Denies nausea Denies hematuria and Denies dysuria Musc Denies abnormal gait, Denies myalgias, Denies arthralgias, Denies numbness and Denies tingling Skin/Breast Reports as per HPI Neuro Denies abnormal gait, Denies dizziness, Denies headache(s), Denies memory loss, Denies numbness, Denies Sensory deficit (Neuro), Denies tingling and Denies weakness Psych Denies anxiety, Denies depression, Denies memory loss Endo Denies cold intolerance, Denies fatigue, Denies heat intolerance, Denies polydipsia and Denies polyuria Aller/Immun Denies wheezing Physical exam (Primary Care) Vital Signs: Last Vital Signs Temp 97.8 F 01/25/25 15:17 Pulse 87 01/25/25 15:17 Resp 16 01/25/25 15:17 BP 155/70 H 01/25/25 15:17 Pulse Ox 98 01/25/25 15:17 Oxygen Delivery Method Room Air 01/25/25 15:17 BMI result Body Mass Index 47.1 Tobacco/Smoking Status: Tobacco use Status Tobacco use date assessed 01/25/25 01/25/25 15:22 Patient Tobacco Use Status Former Tobacco user 01/25/25 15:11 e-Cigarette/Vaping Use Never Used 01/25/25 15:11 Thrive Assessment: Date of Thrive Assessment Date Thrive assessed 10/20/24 01/25/25 15:11 Const Other: General: no acute distress and well developed Nutritional Appearance: well nourished Orientation/consciousness: patient oriented x3 HENMT Head: Yes normocephalic and Yes atraumatic Eyes General: appearance normal, both eyes and all related structures Pupils: Equal, round and reactive pupils present EOM: EOMs intact bilaterally Resp Effort & Inspection: normal respiratory effort Auscultation: clear to auscultation bilaterally Cardio Rate: regular rate Rhythm: regular rhythm Heart sounds: S1 normal heart sound present, S2 normal heart sound present, no gallops, no murmurs and no rubs GI Palpation (GI): No Abdominal aortic bruit present, Soft to palpation, nontender, No hepatosplenomegaly present and No Rebound tenderness present Auscultation: normal bowel sounds General: Yes no CVA tenderness Back/Spine/Pelvis Back: no CVA tenderness Cervical Spine: cervical ROM normal and No Cervical spine tenderness Thoracic/Lumbar Spine: thoraco-lumbar ROM normal, No pain with thoraco-lumbar ROM, No thoracic spinal tenderness and No lumbar spinal tenderness Extrem General: Yes normal to inspection, No edema and No calf tenderness Skin General: warm and dry. Normal skin color. Normal skin turgor Lesions: no lesions Rashes: Red, flat rash to labia majora noted on the patient's cell phone Trauma: no lacerations or abrasions Wounds: no wounds Nails: normal Neuro General: patient oriented x3, gait unsteady and no focal neuro deficit Cranial nerves: Yes Equal, round and reactive pupils present Cognition (Neuro): normal cognition Gait exam (Neuro): Unsteady gait present Sensory Exam: No Sensory deficit (Neuro) Psych Appearance: grossly normal Affect: normal affect Attitude: cooperative Thought process: Normal thought process present Results AMB Hemoglobin A1c AMB Hemoglobin A1c 6.3 % Last Edit by Chelsie Hamilton MA on 01/25/25 15:30 Coding Level of Care Code Est Pt Level 4 (52503) Diagnoses High blood pressure I10 Type 2 diabetes mellitus E11.9 High cholesterol E78.00 Vaginal candidiasis B37.31 Assessment & Plan Assessment & Plan (1) High blood pressure: Code(s): I10 - Essential (primary) hypertension Category: Medical Plan: Resting blood pressure is 120/70, within goal of less than 130/80. Continue current treatment regimen. Low-sodium diet encouraged. Follow-up in 3 months or sooner with symptoms or concerns. Verbalized understanding and agreed with the plan. (2) Type 2 diabetes mellitus: Code(s): E11.9 - Type 2 diabetes mellitus without complications Category: Medical Plan: A1c today is 6.3%, within goal of less than 7.0%. Previous A1c was 6.8%. Continue current treatment regimen. ADA diet and routine exercise encouraged. Will recheck A1c in 3 months. Verbalized understanding and agreed with the plan. (3) High cholesterol: Code(s): E78.00 - Pure hypercholesterolemia, unspecified Category: Medical Plan: Declines antilipemic due to history of adverse reactions. She notes that she will continue to make healthy dietary choices. Lipid panel blood work inadvertently not ordered for this visit as planned. Lipid panel blood work ordered today. Encouraged to perform fasting lab work. Verbalized understanding and agreed with the plan. (4) Vaginal candidiasis: Code(s): B37.31 - Acute candidiasis of vulva and vagina Category: Medical Plan: Reports persistent rash to her genital area for the past 1 year. The rash feels like a burning sensation which intensify with urination. Denies itching. She denies urinary symptoms. She has tried multiple regimen, including antifungal creams without relief. She brought a picture of the rash on her cell phone. Red, flat rash to labia majora noted on the patient's cell phone. Ketoconazole ordered; advised to use as prescribed - apply thin layer to rash. Dermatology referral recommended. Patient notes that she will contact a medical i d sales she preferred to follow-up. Advised to inform PCP if referral for Dermatology is needed. Follow-up with worsening or new symptoms. Verbalized understanding and agreed with the plan. Orders: Orders Lipid Panel Today E78.00 - Pure hypercholesterolemia, unspecified AMB Hemoglobin A1c Today Z13.9 - Encounter for screening, unspecified Medications: New ketoconazole 2% 1 appl topical BID 30 grams 1RF
[2025-01-25 15:17] VITALS: BP 155/70; PULSE 87; RESP 16; TEMP 36.6; O2SAT 98; BMI 47.1
[2025-01-25 15:28] VITALS: BP 128/70
--- OUTSIDE RECORDS SUMMARY | 2025-01-25 16:45 | XMS_ITS | Encounter Summary ---
Author Organization [facility] Address [address] [place] [address] Care Team Providers Care Regional [employer] Name Role Phone Barbara Dailey TIARRA Primary Care Provider [phone] Reason for Visit * Reason Onset Date Comments Labs Only 01/13/2025 Encounter Details Date Type Department Care Team (Late st Contact Info) Description 01/13/2025 Telephone Endocrinology - [address] [place] [address] Maurice Santos MD [address] [place] [address] Social History Tobacco Use Types Packs/Day Years Used Date Smoking Tobacco: Former Cigarettes Q uit: 06/03/1969 Smokeless Tobacco: Never Alcohol Use Standard Drinks/Week Comments Yes 0 [...] Orientation Straight 05/07/2024 8: 03 PM EST documented as of this encounter Progress Notes * Franco Latham - 01/13/2025 3:58 PM EDT Pt calling to follow up on labs that was completed 01/06. Please call pt at [phone] documented in this encounter Plan of Treatment Upcoming Encounters Date Type Department Care Team (Late st Contact Info) Description 02/24/2025 1:15 PM EDT Office Visit Endocrinology - [address] [phone] Maurice Santos MD [address] [place] [address] documented as of this encounter Visit Diagnoses Not on filedocumented in this encounter Care Teams Regional [employer] Relationship Specialty Start Date End Date Barbara Dailey FNP [address] [place] [phone] PCP - General Family Medicine 07/06/24 documented as of this encounter
--- OUTSIDE RECORDS SUMMARY | 2025-01-25 16:45 | XMS_ITS | Clinical Summary ---
Author Organization [address] [facility] Address [address] [place] [address] Phone Care Team Providers Care Carpenter Apprentice Name Role Phone Barbara Dailey TIARRA Primary Care Provider [phone] Allergies Active Allergy Reactions Criticality Noted Date Comments Codeine 05/31/2022 Passed out Other 09/30/2017 Powder gloves Penicillins 09/30/2017 Medications blood-glucose meter kit Check sugars upto 2 times a day 02/07/20 24 Active LACTOBACILLUS ACIDOPHILUS ORAL Take by mouth. Active potassium &magnesium aspartate (MAGNESIUM, POTASSIUM ASPARTATE ORAL) Take by mouth 1 (one) time each day. Active lancets lancets Check sugars upto 2 times a day 02/07/20 24 Active pyridoxine HCl, vitamin B6, (PYRIDOXINE, VITAMIN B6, ORAL) Take by mouth 1 (one) time each day. Active TURMERIC ORAL Take by mouth 1 (one) time each day. Active ZINC ORAL Take by mouth 1 (one) time each day. Active cholecalciferol (VITAMIN D-3) 25 mcg (1,000 unit) tablet Take 2 tablets (2,000 Units total) by mouth 1 (one) time each day. 12/19/19 24 Active SITagliptin phosphate (Januvia) 100 mg tablet Take 1 tablet (100 mg total) by mouth 1 (one) time each day. 12/24/19 24 Active lisinopriL (PRINIVIL,ZESTRIL) 20 mg tabletIndications: Primary hypertension Take 1 tablet (20 mg total) by mouth 1 (one) time each day. 90 tablet 2 05/07/20 24 Active ezetimibe (ZETIA) 10 mg tabletIndications: Mixed hyperlipidemia Take 1 tablet (10 mg total) by mouth 1 (one) time each day. 90 tablet 2 05/07/20 24 Active tiotropium (SPIRIVA) 18 mcg per inhalation capsuleIndications :Chronic obstructive pulmonary disease, unspecified COPD type ([facility] V24, [facility] V28) Place 1 capsule (18 mcg total) into inhaler and inhale 1 (one) time each day in the morning. Inhale the contents of one capsule through the Spiriva device every AM 1 each 3 05/07/20 24 Active metFORMIN (GLUCOPHAGE) 1,000 mg tablet Take 1 tablet (1,000 mg total) by mouth 2 (two) times a day with meals. 60 each 2 05/11/20 24 Active pioglitazone (ACTOS) 30 mg tablet Take 1 tablet (30 mg total) by mouth 1 (one) time each day. Active SITagliptin phosphate (JANUVIA) 100 mg tablet Take 1 tablet (100 mg total) by mouth 1 (one) time each day. Active pen needle, diabetic (BD Ultra-Fine Short Pen Needle) 31 gauge x 5/16 needleIndications: Type 2 diabetes mellitus with diabetic neuropathy, without long-term current use of insulin ([facility] V24, [facility] V28) Use to inject 1-4 times daily as directed 100 each 11 06/10/19 25 Active OneTouch Ultra Test test strip USE TO CHECK SUGARS UP TO TWICE A DAY 200 strip 1 12/30/19 25 Active glucose blood test strip Check sugars upto 2 times a day 02/07/20 24 025 Discontinued insulin glargine (LANTUS SoloStar) 100 unit/mL (3 mL) injection pen Inject 25 Units under the skin at bedtime. 5 Pen 05/11/20 24 025 Discontinued Active Problems Problem Noted Date Diagnosed Date Hyperglycemia due to diabete s mellitus ([facility] V24, [facility] V28) 05/08/2024 Type 2 diabetes mellitus wit h hyperglycemia ([facility] V24, [facility] V28) 05/07/2024 Leg swelling 08/28/2023 Chronic low back pain with bilateral sciatica Primary osteoarthritis of both knees 03/29/2023 Arthritis 10/17/2022 Primary hypertension 10/17/2022 Irritable bowel syndrome 01/21/2020 Type 2 diabetes mellitus wit h obesity ([facility] V24, [facility] V28) 06/26/2019 Morbid obesity ([facility] V24, [facility] V28) 2018 Chronic back pain 09/30/2017 Chronic obstructive pulmonar y disease ([facility] V24, [facility] V28) 09/30/2017 Chronic pain of both knees 09/30/2017 Hyperlipidemia 09/30/2017 Low vitamin D level 09/30/2017 Type 2 diabetes mellitus wit h diabetic neuropathy, without long-term current use of insulin ([facility] V24, [facility] V28) 09/30/2017 Encounters Date Type Department Care Team Description 01/18/2025 Telephone Endocrinology - [address] [phone] Maurice Santos MD 01/14/2025 2:00 PM EDT Office Visit Vascular Surgery - [place] [address] [place] [address] Asha Drew MD Lymphedema in adult patient (Primary Dx) 01/13/2025 Telephone Endocrinology [address] [phone] Maurice Santos MD 01/06/2025 11:30 AM EDT Office Visit Endocrinology [address] [phone] Maurice Santos MD Type 2 diabetes mellitus with obesity ([facility] V24, [facility] V28) from Last 3 Months Immunizations Name Administration Dates Next Due Influenza Quadravalent, 0.5m l (Fluad) 65yo and older 02/22/2024 Influenza Quadravalent, MDCK , 0.5ml, preservative free (Flucelvax) 6mo and older 02/24/2018 Influenza trivalent, 0.5mL ( Fluad) 65yo and older 03/07/2021,02/09/2020,02/16/2019,02/11,03/12/2014,03/06/2013,03/06/2012 ,03/13/2011,03/11/2010 Influenza trivalent, 0.5mL, preservative free (Fluarix; FluLaval; Fluzone) ages 6mo and older (Afluria) 3 years and older 02/13/2016,03/24/2015 Pfizer SARS-CoV-2 COVID-19, mRNA, LNP-S, preservative free 02/21/2022,04/24/2021,10/10/2020 [...] COLONOSCOPY HYSTERECTOMY PROCEDURE: HISTORICAL HYSTERECTOMY CHOLECYSTECTOMY PROCEDURE: [place] LAPAROSCOPY SURG CHOLECYSTECTOMY Medical History Medical History Date Comments L4 vertebral fracture (CMS/H CC V24, [facility] V28) DX:L4 vertebral fracture (HC C) Bronchitis DX:Bronchitis Diabetes mellitus type 2, co ntrolled, with complications (CMS/HCC V24, CMS/[facility] V28) DX:Diabetes mellitus type 2, controlled, with complications (HCC) Irritable bowel syndrome DX:Irri table bowel syndrome Hyperlipidemia DX:Hyperlipidemi a Essential hypertension DX:Essent ial hypertension Primary osteoarthritis of both knees 03/29/2023 DX:Primary osteoarthritis of both knees COPD (chronic obstructive pu lmonary disease) (CMS/HCC V24, CMS/[facility] V28) Chronic back pain Obesity (BMI 30-39.9) [...] Sign Reading Time Taken Comments Blood Pressure 119/75 01/14/2025 1:54 PM EDT Pulse 88 01/14/2025 1:54 PM EDT Temperature 36.6 C (97.9 F) 05/11/2024 3:20 AM EST Respiratory Rate 16 05/10/2024 7:26 PM EST Oxygen Saturation 98% 05/11/2024 3:20 AM EST Inhaled Oxygen Concentration - - Weight 112 kg (246 lb) 01/14/2025 1:54 PM EDT Height 162.6 cm (5' 4 ) 01/14/2025 1:54 PM EDT Body Mass Index 42.23 01/14/2025 1:54 PM EDT Plan of Treatment Upcoming Encounters Date Type Department Care Team (Late st Contact Info) Description 02/24/2025 1:15 PM EDT Office Visit Endocrinology - [address] [phone] Maurice Santos MD [address] [place] [phone] Health Maintenance Due Date Last Done Comments Breast Cancer Screening 1955 Diabetes: Annual Foot Exam 1965 Colorectal Cancer Screening: Stool Based Tests (FOBT/FIT) 05/11/2022 Medicare Annual Wellness Visit 05/11/2022 Osteoporosis Screening (Bone Density Screening) 05/11/2022 Social Influencers of Health Screening 05/11/2022 Depression Screening 06/03/2024 COVID-19 Vaccine (10 - Pfizer risk season) 2024 02/17/2024, 02/12/2024, 10/10/2023, Additional history exists Influenza Vaccine (#1) 2025 , 02/12/2024, 02/28/2023, Additional history exists Diabetes: Annual Retina Eye Exam 03/02/2025 03/02/2024 Falls Risk Assessment 05/11/2025 05/11/2024 Diabetes: Blood Sugar Control Test (HGBA1C) 07/09/2025 01/06/2025, 05/07/2024, 07/22/2023 Diabetes: Annual Urine Albumin-Creatinine Ratio (uACR) 01/06/2026 01/06/2025, 01/01/2024 Diabetes: Annual GFR (Glomerular Filtration Rate) 01/06/2026 01/06/2025, 05/09/2024, 05/08/2024, Additional history exists Hypertension/CHF/CAD Annual BMP Blood Test 01/06/2026 01/06/2025, 05/09/2024, 05/08/2024, Additional history exists Cholesterol Screening (Lipid Panel) 01/06/2030 01/06/2025, 03/20/2023 DTaP,Tdap,and Td Vaccines (2 - Td [...] Procedure Name Priority Date/Time Associated Diagnosis Comments MICROALBUMIN CREATININE URINE RATIO Routine 01/06/2025 1:44 PM EDT Type 2 diabetes mellitus with obesity ([facility] V24, [facility] V28) CREATININE, SERUM Routine 01/06/2025 12: 15 PM EDT Type 2 diabetes mellitus with obesity ([facility] V24, CMS/[facility] V28) BUN Routine 01/06/2025 12:15 PM EDT Type 2 diabetes mellitus with obesity ([facility] V24, CMS/HCC V28) HEMOGLOBIN A1C Routine 01/06/2025 12:15 PM EDT Type 2 diabetes mellitus with obesity ([facility] V24, CMS/HCC V28) HEMOGLOBIN AND HEMATOCRIT Routine 01/06/2025 12:15 PM EDT Type 2 diabetes mellitus with obesity ([facility] V24, CMS/HCC V28) LIPID PANEL WITH REFLEX TO DIRECT LDL Routine 01/06/2025 12:15 PM EDT Type 2 diabetes mellitus with obesity ([facility] V24, CMS/HCC V28) EXTERNAL DIABETIC RETINA EYE EXAM Routine 03/02/2024 9:49 AM EDT HEPATITIS C SCREENING Routine 08/02/2021 from Last 3 Months or Most Recently Relevant to Health Maintenance Results * Microalbumin creatinine urine ratio (01/06/2025 1:44 PM EDT) Creatinine, Urine 138.0 mg/dL LAB CHEMISTRY METHOD 01/06/2025 5:07 PM EDT [facility] Microalb, Ur 15.6 0.0 - 29.0 mg/L LAB CHEMISTRY METHOD 01/06/2025 5:07 PM EDT [facility] Microalb/Creat Ratio 11 <30 mg/g creat LAB CHEMISTRY METHOD 01/06/2025 5:07 PM EDT [facility] Urine Urine specimen obtained by clean catch procedure / Unknown Non-blood Collection / Unknown 01/06/2025 1:44 PM EDT 01/06/2025 1:44 PM EDT us Maurice Santos MD LAB URINE ORDERABLES Final Resul t [facility] [address] [place] [address], [place] [phone] * (ABNORMAL) Lipid panel with reflex to direct LDL (01/06/2025 12:15 PM EDT) Cholesterol 225(H) 0 - 200 mg/dL LAB CHEMISTRY METHOD 01/06/2025 4:51 PM EDT [facility] Triglycerides 283(H) 0 - 150 mg/dL LAB CHEMISTRY METHOD 01/06/2025 4:51 PM EDT [facility] HDL 47 >=40 mg/dL LAB CHEMISTRY METHOD 01/06/2025 4:51 PM EDT [facility] LDL Calculated 121(H) 0 - 100 mg/dL LAB CHEMISTRY METHOD 01/06/2025 4:51 PM EDT [facility] Comment:Estimated LDL Calcul ated using equation: Total cholesterol - HDL cholesterol - (Triglycerides/5) VLDL Cholesterol Allan 56.6 mg/dL LAB CHEMISTRY METHOD 01/06/2025 4:51 PM EDT [facility] Non HDL Chol. (LDL+VLDL) 178(H) <145 mg/dL LAB CHEMISTRY METHOD 01/06/2025 4:51 PM EDT [facility] Chol/HDL Ratio 4.8(H) 0.0 - 4.4 LAB CHEMISTRY METHOD 01/06/2025 4:51 PM EDT [facility] Blood Venous blood specimen / Unknown Venipuncture / Unknown 01/06/2025 12:15 PM EDT 01/06/2025 12:15 PM EDT Maurice Santos MD LAB BLOOD ORDERABLES Final Resul t Performing Organization Address [facility] Co de Phone Number [facility] [address] [place] [address], * Hemoglobin and hematocrit (01/06/2025 12:15 PM EDT) Hemoglobin 13.1 11.5 - 16.0 g/dL LAB HEMETOLOGY METHOD 01/06/2025 2:17 PM EDT [facility] Hematocrit 40.1 35.0 - 47.0 % LAB HEMETOLOGY METHOD 01/06/2025 2:17 PM EDT [facility] Blood Venous blood specimen / Unknown Venipuncture / Unknown 01/06/2025 12:15 PM EDT 01/06/2025 12:15 PM EDT us Maurice Santos MD LAB BLOOD ORDERABLES Final Resul t Performing Organization Address City/[facility]/ZIP Co de Phone Number [facility] [address] [place] [address], [place] [phone] * (ABNORMAL) Creatinine (01/06/2025 12:15 PM EDT) Creatinine 1.14(H) 0.50 - 1.10 mg/dL LAB CHEMISTRY METHOD 01/06/2025 4:51 PM EDT [facility] eGFR 52(L) >=60 mL/min/1. 73m2 LAB CHEMISTRY METHOD 01/06/2025 4:51 PM EDT [facility] Comment:Calculation based on the Chronic Kidney Disease Epidemiology Collaboration (CKD-EPI) equation refit without adjustment for race. Blood Venous blood specimen / Unknown Venipuncture / Unknown 01/06/2025 12:15 PM EDT 01/06/2025 12:15 PM EDT us Maurice Santos MD LAB BLOOD ORDERABLES Final Resul t Performing Organization Address City/[facility]/ZIP Co de Phone Number [facility] [address] [place] [address], * BUN (01/06/2025 12:15 PM EDT) BUN 23 5 - 25 mg/dL LAB CHEMISTRY METHOD 01/06/2025 4:51 PM EDT [facility] Blood Venous blood specimen / Unknown Venipuncture / Unknown 01/06/2025 12:15 PM EDT 01/06/2025 12:15 PM EDT us Maurice Santos MD LAB BLOOD ORDERABLES Final Resul t [facility] [address] [place] [address], [place] [phone] * Hemoglobin A1c (01/06/2025 12:15 PM EDT) Hemoglobin A1C 6.2 <6.5 % LAB CHEMISTRY METHOD 01/06/2025 9:17 PM EDT [facility] Mean Bld Glu Estim. 131 mg/dL LAB CHEMISTRY METHOD 01/06/2025 9:17 PM EDT [facility] Blood Venous blood specimen / Unknown Venipuncture / Unknown 01/06/2025 12:15 PM EDT 01/06/2025 12:15 PM EDT Maurice Santos MD LAB BLOOD ORDERABLES Final Resul t [facility] [address] [place] [address], * External Diabetic Retina Eye Exam Report (03/02/2024 9:49 AM EDT) Anatomical Region Laterality Modality Ultrasound Historical Provider IMG US PROCEDURES Final R esult * Hepatitis C Screening (08/02/2021) Hepatitis C Screening Abstracted Historical Provider HEALTH MAINTENANCE Final Result from Last 3 Months or Most Recently Relevant to Health Maintenance Insurance [employer] Advance Directives Documents on File Type Date Recorded 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 Care Teams Carpenter Apprentice Relationship Specialty Start Date End Date Barbara Dailey FNP [address] [place] [address] PCP - General Family Medicine 07/06/24
== END 2025-01-25 15:42 | disposition home or self-care (01) ==
LOC: HO.HMCFM 15:05
PROVIDERS: PCP Nurse Practitioner Family; Visit Provider Nurse Practitioner Family
DX: I10 Essential (primary) hypertension (principal); E11.9 Type 2 diabetes mellitus without complications; E78.00 Pure hypercholesterolemia, unspecified; B37.31 Acute candidiasis of vulva and vagina; Z13.9 Encounter for screening, unspecified

== ENCOUNTER → 2025-01-25 15:04 | Outpatient (BNVA) | payer MEDICARE, SELFPAY | PROVIDERS: PCP Nurse Practitioner Family; Visit Provider Nurse Practitioner Family | DX: I10 Essential (primary) hypertension (principal); E11.9 Type 2 diabetes mellitus without complications; E78.00 Pure hypercholesterolemia, unspecified; B37.31 Acute candidiasis of vulva and vagina | CPT/HCPCS: 83036; 99212 ==

== ENCOUNTER → 2025-02-09 14:00 | Outpatient (BNV) | payer MEDICARE, SELFPAY | PROVIDERS: PCP Nurse Practitioner Family; Visit Provider Radiology Diagnostic Radiology | DX: E28.39 Other primary ovarian failure (principal) | CPT/HCPCS: 77080 ==

== ENCOUNTER 2025-02-09 14:03 | Outpatient (REF) | payer MEDICARE, SELFPAY ==
--- NOTE | ~2025-02-09 | MM_ITS ---
EXAMINATION: DXA BONE DENSITY AXIAL HISTORY: M81.0 - Age-related osteoporosis without current pathological fracture TECHNIQUE: [email or web address] Dual energy absorptiometry (DEXA) of the lumbar spine, total left hip, and femoral neck was performed. COMPARISON: There are no prior studies for comparison. FINDINGS: The bone mineral density of the lumbar spine is 1.147 g/cm2, corresponding to a T-score of -0.3, and a Z-score of 0.3. This is indicative of normal bone mineral density. The bone mineral density of the left total hip is 0.769 g/cm2, corresponding to a T-score of -1.9, and a Z-score of -1.2. This is indicative of osteopenia. The bone mineral density of the left femoral neck is 0.723 g/cm2, corresponding to a T-score of -2.3, and a Z-score of -1.3. This is indicative of osteopenia. FRACTURE RISK: The FRAX index suggests a risk of major osteoporotic fracture of 17.9%, and of hip fracture 3.8%. MM/XR DEXA axial skeleton IMPRESSION: Based on bone mineral density, and according to World Health Organization (WHO) criteria, the diagnosis is consistent with osteopenia. Statistically, 68% of repeat scans fall within 1 SD (+/- 0.010 g/cm2 for AP spine L1-L4) and 1 SD (+/- 0.012 g/cm2 for femur total) FRAX is a trademark of the [employer] [place] for Metabolic Bone Disease, a World Health Organization (WHO) Collaborating Center. Electronically signed by: Narciso Leonard MD 02/09/2025 02:41 PM EDT
--- OUTSIDE RECORDS SUMMARY | 2025-02-09 16:42 | XMS_ITS | Clinical Summary ---
Author Organization [address] [facility] Address [address] [place] [address] Phone Care Team Providers Care Copy Center Associate Name Role Phone Barbara Dailey TIARRA Primary Care Provider [phone] Allergies Active Allergy Reactions Criticality Noted Date [...] Chronic obstructive pulmonary disease, unspecified COPD type ([facility] V24, [facility] V28) Place 1 capsule (18 mcg total) into inhaler and inhale 1 (one) time each day in the morning. Inhale the contents of one capsule through the Spiriva device every AM 1 each 3 4 Active metFORMIN (GLUCOPHAGE) 1,000 mg tablet Take 1 tablet (1,000 mg total) by mouth 2 (two) times a day with meals. 60 each 2 4 Active pioglitazone (ACTOS) 30 mg tablet [...] neuropathy, without long-term current use of insulin ([facility] V24, [facility] V28) Use to inject 1-4 times daily as directed 100 each 11 5 Active OneTouch Ultra Test test strip USE TO CHECK SUGARS UP TO TWICE A DAY 200 strip 1 5 Active Active Problems Problem Noted Date Diagnosed Date Hyperglycemia due to diabete s mellitus ([facility] V24, [facility] V28) 05/08/2024 Type 2 diabetes mellitus wit h hyperglycemia ([facility] V24, [facility] V28) 05/07/2024 Leg swelling 08/28/2023 Chronic low back pain with bilateral sciatica Primary osteoarthritis of both knees 03/29/2023 Arthritis 10/17/2022 Primary hypertension 10/17/2022 Irritable bowel syndrome 01/21/2020 Type 2 diabetes mellitus wit h obesity ([facility] V24, [facility] V28) 06/26/2019 Morbid obesity ([facility] V24, [facility] V28) 2018 Chronic back pain 09/30/2017 Chronic obstructive pulmonar y disease ([facility] V24, [facility] V28) 09/30/2017 Chronic pain of both knees 09/30/2017 Hyperlipidemia 09/30/2017 Low vitamin D level 09/30/2017 Type 2 diabetes mellitus wit h diabetic neuropathy, without long-term current use of insulin ([facility] V24, [place] [id number]) 09/30/2017 Encounters Date Type Department Care Team Description 01/18/2025 Telephone Endocrinology [facility] [address] [place] [address] Maurice Santos MD 01/14/2025 2:00 PM EDT Office Visit Vascular Surgery - [place] [address] [place] [phone] Asha Drew MD Lymphedema in adult patient (Primary Dx) 01/13/2025 Telephone Endocrinology - [place] [address] [place] [address] Maurice Santos MD 01/06/2025 11:30 AM EDT Office Visit [address] [address] Maurice Santos MD Type 2 diabetes mellitus with obesity ([facility] V24, [facility] V28) from Last 3 Months Immunizations Name [...] COLONOSCOPY HYSTERECTOMY PROCEDURE: HISTORICAL HYSTERECTOMY CHOLECYSTECTOMY PROCEDURE: OR LAPAROSCOPY SURG CHOLECYSTECTOMY Medical History Medical History Date Comments L4 vertebral fracture (CMS/H CC V24, CMS/HCC V28) DX:L4 vertebral fracture (HC C) Bronchitis DX:Bronchitis Diabetes mellitus type 2, co ntrolled, with complications (CMS/HCC V24, CMS/HCC V28) DX:Diabetes mellitus type 2, controlled, with complications (HCC) Irritable bowel syndrome DX:Irri table bowel syndrome Hyperlipidemia DX:Hyperlipidemi a Essential hypertension DX:Essent ial hypertension Primary osteoarthritis of both knees 03/29/2023 DX:Primary osteoarthritis of both knees COPD (chronic obstructive pu lmonary disease) (CMS/HCC V24, CMS/HCC V28) Chronic back pain Obesity (BMI 30-39.9) [...] 1:15 PM EDT Office Visit Endocrinology - [address] [address] Maurice Santos MD [address] [place] [id number] Health Maintenance Due Date Last Done Comments Breast Cancer Screening 1955 Diabetes: Annual Foot Exam 1965 Colorectal Cancer Screening: Stool Based Tests (FOBT/FIT) 05/11/2022 Medicare Annual Wellness Visit 05/11/2022 Osteoporosis Screening (Bone Density Screening) 05/11/2022 Social Influencers of Health Screening 05/11/2022 Depression Screening 06/03/2024 COVID-19 Vaccine (10 - Pfizer risk season) 2025 02/17/2024, 02/12/2024, 10/10/2023, Additional history exists Influenza [...] EDT Type 2 diabetes mellitus with obesity ([facility] V24, [facility] V28) CREATININE, SERUM Routine 01/06/2025 12: 15 PM EDT Type 2 diabetes mellitus with obesity ([facility] V24, [facility] V28) BUN Routine 01/06/2025 12:15 PM EDT Type 2 diabetes mellitus with obesity ([facility] V24, [facility] V28) HEMOGLOBIN A1C Routine 01/06/2025 12:15 PM EDT Type 2 diabetes mellitus with obesity ([facility] V24, [facility] V28) HEMOGLOBIN AND HEMATOCRIT Routine 01/06/2025 12:15 PM EDT Type 2 diabetes mellitus with obesity ([facility] V24, [facility] V28) LIPID PANEL WITH REFLEX TO DIRECT LDL Routine 01/06/2025 12:15 PM EDT Type 2 diabetes mellitus with obesity ([facility] V24, CMS/HCC V28) EXTERNAL DIABETIC RETINA EYE EXAM Routine 03/02/2024 9:49 AM EDT HEPATITIS C SCREENING Routine 08/02/2021 from Last 3 Months or Most Recently Relevant to Health Maintenance Results * Microalbumin creatinine urine ratio (01/06/2025 1:44 PM EDT) [facility] Creatinine, Urine 138.0 mg/dL LAB CHEMISTRY METHOD 01/06/2025 5:07 PM EDT [facility] Microalb, Ur 15.6 0.0 - 29.0 mg/L LAB CHEMISTRY METHOD 01/06/2025 5:07 PM EDT [facility] Microalb/Creat Ratio 11 <30 mg/g creat LAB CHEMISTRY METHOD 01/06/2025 5:07 PM EDT [facility] Urine Urine specimen obtained by clean catch procedure / Unknown Non-blood Collection / Unknown 01/06/2025 1:44 PM EDT 01/06/2025 1:44 PM EDT Maurice Santos MD LAB URINE ORDERABLES Final Resul t [facility] [address] [place] [address], [place] [phone] * (ABNORMAL) Lipid panel with reflex to direct LDL (01/06/2025 12:15 PM EDT) Cholesterol 225(H) 0 - 200 mg/dL LAB CHEMISTRY METHOD 01/06/2025 4:51 PM EDT [facility] Triglycerides 283(H) 0 - 150 mg/dL LAB CHEMISTRY METHOD 01/06/2025 4:51 PM T [facility] HDL 47 >=40 mg/dL LAB CHEMISTRY METHOD 01/06/2025 4:51 PM EDT [facility] LDL Calculated 121(H) 0 - 100 mg/dL LAB CHEMISTRY METHOD 01/06/2025 4:51 PM EDT [facility] Comment:Estimated LDL Calcul ated using equation: Total cholesterol - HDL cholesterol - (Triglycerides/5) VLDL Cholesterol Allan 56.6 mg/dL LAB CHEMISTRY METHOD 01/06/2025 4:51 PM EDT [facility] Non HDL Chol. (LDL+VLDL) 178(H) <145 mg/dL LAB CHEMISTRY METHOD 01/06/2025 4:51 PM EDT [facility] Chol/HDL Ratio 4.8(H) 0.0 - 4.4 LAB CHEMISTRY METHOD 01/06/2025 4:51 PM EDT [facility] Blood Venous blood specimen / Unknown Venipuncture / Unknown 01/06/2025 12:15 PM EDT 01/06/2025 12:15 PM EDT us Maurice Santos MD LAB BLOOD ORDERABLES Final Resul t Performing Organization Address [facility] de Phone Number [facility] [address] [place] [address], [place] [phone] * Hemoglobin and hematocrit (01/06/2025 12:15 PM EDT) Hemoglobin 13.1 11.5 - 16.0 g/dL LAB HEMETOLOGY METHOD 01/06/2025 2:17 PM EDT [facility] Hematocrit 40.1 35.0 - 47.0 % LAB HEMETOLOGY METHOD 01/06/2025 2:17 PM EDT [facility] Blood Venous blood specimen / Unknown Venipuncture / Unknown 01/06/2025 12:15 PM EDT 01/06/2025 12:15 PM EDT us Maurice Santos MD LAB BLOOD ORDERABLES Final Resul t Performing Organization Address [facility] Co de Phone Number [facility] [address] [place] [address], [place] [phone] * (ABNORMAL) Creatinine (01/06/2025 12:15 PM EDT) Creatinine 1.14(H) 0.50 - 1.10 mg/dL LAB CHEMISTRY METHOD 01/06/2025 4:51 PM EDT [facility] eGFR 52(L) >=60 mL/min/1. 73m2 LAB CHEMISTRY METHOD 01/06/2025 4:51 PM EDT [facility] Comment:Calculation based on the Chronic Kidney Disease Epidemiology Collaboration (CKD-EPI) equation refit without adjustment for race. Blood Venous blood specimen / Unknown Venipuncture / Unknown 01/06/2025 12:15 PM EDT 01/06/2025 12:15 PM EDT us Maurice Santos MD LAB BLOOD ORDERABLES Final Resul t Performing Organization Address City/[facility]/ZIP Co de Phone Number [facility] [address] [place] [address], [place] [phone] * BUN (01/06/2025 12:15 PM EDT) BUN 23 5 - 25 mg/dL LAB CHEMISTRY METHOD 01/06/2025 4:51 PM EDT [facility] Blood Venous blood specimen / Unknown Venipuncture / Unknown 01/06/2025 12:15 PM EDT 01/06/2025 12:15 PM EDT us Maurice Santos MD LAB BLOOD ORDERABLES Final Resul t Performing Organization Address [facility] de Phone Number [facility] [address] [place] [address], [place] [phone] * Hemoglobin A1c (01/06/2025 12:15 PM EDT) Hemoglobin A1C 6.2 <6.5 % LAB CHEMISTRY METHOD 01/06/2025 9:17 PM EDT [facility] Mean Bld Glu Estim. 131 mg/dL LAB CHEMISTRY METHOD 01/06/2025 9:17 PM EDT [facility] Blood Venous blood specimen / Unknown Venipuncture / Unknown 01/06/2025 12:15 PM EDT 01/06/2025 12:15 PM EDT us Maurice Santos MD LAB BLOOD ORDERABLES Final Resul t [facility] [address] [place] [address], [place] [phone] * External Diabetic Retina Eye Exam Report (03/02/2024 9:49 AM EDT) Anatomical Region Laterality Modality Ultrasound us Historical Provider IMG US PROCEDURES Final R esult * Hepatitis C Screening (08/02/2021) Hepatitis C Screening Abstracted us Historical Provider HEALTH MAINTENANCE Final Result from Last 3 Months or Most Recently Relevant to Health Maintenance Insurance [employer] Advance Directives Documents on File Type Date Recorded 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 Care Teams Copy Center Associate Relationship Specialty Start Date End Date Barbara Dailey FNP [address] [place] [address] PCP - General Family Medicine 07/06/24
--- OUTSIDE RECORDS SUMMARY | 2025-02-09 16:42 | XMS_ITS | Encounter Summary ---
Author Organization [facility] Address [address] [place] [address] Care Team Providers Care Table Hand Name Role Phone Barbara Dailey TIARRA Primary Care Provider [phone] Reason for Visit * Reason Onset Date Comments Labs Only 01/13/2025 Encounter Details Date Type Department Care Team (Late st Contact Info) Description 01/13/2025 Telephone Endocrinology - [place] [address] [place] [address] Maurice Santos MD [address] [place] [address] Social History Tobacco Use Types Packs/Day Years [...] was completed 01/06. Please call pt at [phone] documented in this encounter Plan of Treatment Upcoming Encounters Date Type Department Care Team (Late st Contact Info) Description 02/24/2025 1:15 PM EDT Office Visit Endocrinology - [address] [address] Maurice Santos MD [address] [place] [address] documented as of this encounter Visit Diagnoses Not on filedocumented in this encounter Care Teams Table Hand Relationship Specialty Start Date End Date Barbara Dailey FNP [address] [place] [address] PCP - General Family Medicine 07/06/24 documented as of this encounter
== END 2025-02-09 14:04 | disposition home or self-care (01) ==
LOC: HO.MAMMO 14:03
PROVIDERS: PCP Nurse Practitioner Family; Visit Provider Nurse Practitioner Family
DX: M81.0 Age-related osteoporosis without current pathological fracture (principal)
CPT/HCPCS: 77080